=== PATIENT | female | born 1965 | race Caucasian/White ===

== ENCOUNTER 2018-05-03 12:55 | Emergency (ER) | payer BC ==
--- OUTSIDE RECORDS SUMMARY | 2018-05-03 13:09 | XMS REPORT ---
:1965 External Reference #:[id number] Author Organization [facility] Address [address] [address] Phone [phone] Care Team Providers Name Role Phone Chela Mccabe MD Primary Care Physician Unavailable Payers Type Date Identification Numbers Payment Provider Subscriber Health Maintenance Policy Number: [id number] [facility] [employer] (HMO) Plan PayID: [id number] [address] [place] [address] Problems Date Description Provider Status Onset: 10/10/2010 Benign essential hypertension Chela Mccabe MD Active Onset: 12/15/2009 Postoperative hypothyroidism Chela Mccabe MD Active Onset: 12/21/2014 Anxiety state Chela Mccabe MD Active Onset: 07/24/2017 Allergic rhinitis Chela Mccabe MD Active Family History Date Family Member(s) Problem(s) Comments Onset: (age 45 Father [place] Years) Mother None : (age 79 Paternal Grandfather due to Heart Years) Disease Paternal Grandmother Rheumatoid Arthritis : (age 68 Paternal Grandmother due to Years) Pneumonia Maternal Grandfather due to () - in Alzheimer's Disease his 80's : (age 82 Maternal Grandmother due to Cancer, Years) Stomach Social History Type Date Description Comments Education Hightest level completed, 1 year of college Marital Status Lives With Spouse Lives With Daughter Smoke-Free Home is smoke-free Pets 1 cat Pets 1 dog Occupation [employer] Cigarette Use Never Smoked Cigarettes ETOH Use Rarely consumes alcohol Smoking Patient has never smoked Allergies, Adverse Reactions, Alerts Date Description Reaction Status Severity Comments 12/15/2009 Percocet Dizzy, Vomiting active Medications Medication Date Status Form Strength Qnty SIG Indications Ordering Provider Fluticasone 01/23 Active Suspension 50mcg/Act 15.80 2 sprays H68.012 Eliot 0ml to each MD Chela nostril daily Levothyroxine 07/08 Active Tablets 50mcg 180ta 2 by mouth E89.0 Eliot , Sodium bs every day MD Chela Propranolol HCL 09/13 Active Tablets 10mg 60tab 1 -2 tabs F41.1 s by mouth MD Chela every 6 hours as needed for anxiety sx Enalapril Maleate 09/10 Active Tablets 10mg 90tab take 1 I10 Eliot s tablet MD Chela daily Hydrochlorothiazi 09/10 Active Tablets 12.5mg 90tab take 1 I10 Eliot s tablet MD Chela daily Amoxicillin/Clavu 03/17 Hx Tablets 875-125mg 14tab 1 by mouth J01.90 Solomon, lanate s twice a Alejo, - day x 7 DO Prednisone 03/17 Hx Tablets 20mg 10tab 2 tablets J01.90 Solomon, s by mouth Alejo, - for 5 days DO 04/23 Prednisone 02/03 Hx Tablets 20mg 6tabs 2x/day by H68.012 Digiovann mouth for a, - 3 days Annalise, 02/06 Cephalexin 11/23 Hx Tablets 500mg 40tab 1 by mouth J34.0 Eliot, s four times MD Chela - a day x 10 Benzonatate 09/24 Hx Capsules 200mg 30cap 1 by mouth R05 Digiovann s every 8 a, - hours as Annalise, 10/04 needed for cough, may cause drowsiness Levothyroxine 07/05 Hx Tablets 100mcg 60tab 1 by mouth E89.0 Eliot, Sodium s every day MD Chela - 07/08 Levothyroxine 12/21 Hx Tablets 88mcg 90tab 1 by mouth E89.0 Kulwinder Mccabe /Alivia s every day MD Chela - 07/05 Immunizations CPT Code Status Date Vaccine Lot # [id number] Given 07/28/2013 Tdap (Adacel) Ages 7 And Above Only [id number] Refused 02/27/2018 Flu Vaccine NOS [id number] Refused 01/19/2016 Afluria Or Fluvirin Flu Vac Intramuscular Vital Signs Date Vital Result Comment 04/23/2018 Body Temperature 98.5 F Weight 137.00 lb Heart Rate 76 /min BP Systolic 140 mmHg BP Diastolic 80 mmHg Respiratory Rate 18 /min Height 62 inches 5'2" 02/27/18 BMI (Body Mass Index) 25.1 kg/m2 03/17/2018 Body Temperature 98.4 F Weight 136.00 lb Heart Rate 76 /min BP Systolic 130 mmHg BP Diastolic 70 mmHg Respiratory Rate 18 /min Height 62 inches 5'2" 02/27/18 O2 % BldC Oximetry 93 % BMI (Body Mass Index) 24.9 kg/m2 02/27/2018 Weight 141.00 lb Heart Rate 72 /min BP Systolic 130 mmHg BP Diastolic 80 mmHg Respiratory Rate 18 /min Height 62 inches 5'2" 02/27/18 BMI (Body Mass Index) 25.8 kg/m2 02/03/2018 Weight 149.00 lb Heart Rate 80 /min BP Systolic 130 mmHg BP Diastolic 80 mmHg Respiratory Rate 16 /min Height 62 inches 5'2" 01/13/17 BMI (Body Mass Index) 27.2 kg/m2 01/23/2018 Body Temperature 99.2 F Weight 144.00 lb Heart Rate 84 /min BP Systolic 128 mmHg BP Diastolic 84 mmHg Respiratory Rate 16 /min Height 62 inches 5'2" 01/13/17 BMI (Body Mass Index) 26.3 kg/m2 07/24/2017 Weight 145.00 lb Heart Rate 80 /min BP Systolic 130 mmHg BP Diastolic 80 mmHg Respiratory Rate 18 /min Height 62 inches 5'2" 01/13/17 BMI (Body Mass Index) 26.5 kg/m2 01/21/2017 Weight 150.00 lb Heart Rate 80 /min BP Systolic 132 mmHg BP Diastolic 82 mmHg Respiratory Rate 18 /min Height 62 inches 5'2" 01/13/17 BMI (Body Mass Index) 27.4 kg/m2 01/13/2017 Weight 138.00 lb Heart Rate 68 /min BP Systolic 130 mmHg BP Diastolic 70 mmHg Respiratory Rate 18 /min Height 62 inches 5'2" 01/13/17 BMI (Body Mass Index) 25.2 kg/m2 12/30/2016 Body Temperature 100.1 F Weight 138.00 lb Heart Rate 80 /min BP Systolic 144 mmHg BP Diastolic 84 mmHg Respiratory Rate 18 /min Height 62 inches 5'2" 02/01/16 BMI (Body Mass Index) 25.2 kg/m2 11/23/2016 Body Temperature 98.7 F Weight 143.00 lb Heart Rate 76 /min BP Systolic 130 mmHg BP Diastolic 84 mmHg Respiratory Rate 16 /min Height 62 inches 5'2" 02/01/16 BMI (Body Mass Index) 26.2 kg/m2 09/24/2016 Body Temperature 99.5 F Weight 141.00 lb Heart Rate 96 /min BP Systolic 138 mmHg BP Diastolic 80 mmHg Respiratory Rate 18 /min Height 62 inches 5'2" 02/01/16 O2 % BldC Oximetry 98 % Ra BMI (Body Mass Index) 25.8 kg/m2 07/05/2016 Weight 139.00 lb Heart Rate 80 /min BP Systolic 130 mmHg BP Diastolic 80 mmHg Respiratory Rate 18 /min Height 62 inches 5'2" 02/01/16 BMI (Body Mass Index) 25.4 kg/m2 03/05/2016 Weight 140.00 lb Heart Rate 76 /min BP Systolic 110 mmHg BP Diastolic 70 mmHg Respiratory Rate 18 /min Height 62 inches 5'2" 02/01/16 BMI (Body Mass Index) 25.6 kg/m2 02/21/2016 Weight 140.00 lb Heart Rate 76 /min BP Systolic 130 mmHg BP Diastolic 88 mmHg Respiratory Rate 18 /min Height 62 inches 5'2" 02/01/16 BMI (Body Mass Index) 25.6 kg/m2 02/01/2016 Weight 142.00 lb Heart Rate 80 /min BP Systolic 120 mmHg BP Diastolic 60 mmHg Respiratory Rate 18 /min Height 62 inches 5'2" 02/01/16 BMI (Body Mass Index) 26.0 kg/m2 01/19/2016 Weight 140.00 lb Heart Rate 76 /min BP Systolic 112 mmHg BP Diastolic 70 mmHg Respiratory Rate 18 /min Height 62 inches 5'2" 08/22/15 BMI (Body Mass Index) 25.6 kg/m2 08/22/2015 Weight 138.00 lb Heart Rate 80 /min BP Systolic 124 mmHg BP Diastolic 80 mmHg Respiratory Rate 18 /min Height 62 inches 5'2" 08/22/15 BMI (Body Mass Index) 25.2 kg/m2 06/07/2015 Weight 137.00 lb Heart Rate 76 /min BP Systolic 122 mmHg BP Diastolic 80 mmHg Respiratory Rate 18 /min 12/21/2014 Weight 135.00 lb BP Systolic 112 mmHg BP Diastolic 76 mmHg Respiratory Rate 18 /min Height 62.25 inches 5'2.25" BMI (Body Mass Index) 24.5 kg/m2 08/01/2014 Weight 138.00 lb Heart Rate 78 /min BP Systolic 130 mmHg BP Diastolic 90 mmHg Respiratory Rate 18 /min Height 62.25 inches 5'2.25" 02/23/2014 Weight 134.00 lb Heart Rate 80 /min BP Systolic 126 mmHg BP Diastolic 70 mmHg Respiratory Rate 16 /min Height 62.25 inches 5'2.25" 12/09/2013 Weight 130.00 lb Heart Rate 68 /min BP Systolic 120 mmHg BP Diastolic 72 mmHg Respiratory Rate 16 /min Height 62.25 inches 5'2.25" Results Test Date Test Result H/L Range Note Laboratory test finding 04/23/2018 TSH <pending> Laboratory test finding 04/23/2018 Esr <pending> CRP (C-Reactive) <pending> Laboratory test finding 04/23/2018 Cortisol-RL <pending> Xray 04/23/2018 Chest Xray, 2 Views <pending> Rout Urine W/ Micro -RL 03/17/2018 Color YELLOW Appearance CLEAR Spec Grav Urine 1.012 (1.003-1.030) PH Urine 6.0 (5.0-7.5) Leuk Esterase NEGATIVE (Neg) Nitrite Urine NEGATIVE (Neg) Protein Urine NEGATIVE (Neg) Glucose Urine NEGATIVE (Neg) Ketone Urine NEGATIVE (Neg) Urobilinogen 0.2 mg/dL (0-1.0) Bilirubin Urine NEGATIVE (Neg) Blood/HGB Urine 1+ (Neg) Epithelial Cells NEGATIVE [HPF] (Neg) Hyaline Casts 0.3 [LPF] (0-5) Bacteria NEGATIVE [HPF] (Neg) Urine WBC 0.8 [HPF] (0-8) Urine RBC 1.0 [HPF] (0-3) 1 Laboratory test finding 02/27/2018 Urine Culture Microbiology res <SEE NOTE > 2 Rout Urine W/ Micro -RL 02/27/2018 Color YELLOW Appearance CLEAR Spec Grav Urine 1.014 (1.003-1.030) PH Urine 6.5 (5.0-7.5) Leuk Esterase NEGATIVE (Neg) Nitrite Urine NEGATIVE (Neg) Protein Urine NEGATIVE (Neg) Glucose Urine NEGATIVE (Neg) Ketone Urine NEGATIVE (Neg) Urobilinogen 0.2 mg/dL (0-1.0) Bilirubin Urine NEGATIVE (Neg) Blood/HGB Urine 2+ (Neg) Epithelial Cells NEGATIVE [HPF] (Neg) Hyaline Casts 1.6 [LPF] (0-5) Bacteria 1+ [HPF] (Neg) Urine WBC 3.4 [HPF] (0-8) Urine RBC 9.7 [HPF] High (0-3) 3 CBC With Auto Diff 02/12/2018 White Blood Count 7.4 K/uL 3.1-10.7 4 Red Blood Count 4.35 M/uL 3.90-5.40 4 Hemoglobin 13.6 gm/dL 11.6-15.8 4 Hematocrit 40.6 % 36.0-46.1 4 Mean Cell Volume 93.3 fl 80.9-99.0 4 Mean Corpuscular HGB 31.3 pg 25.9-32.7 4 Mean Corpuscular HGB Conc 33.5 g/dL 30.8-34.3 4 Platelet Count 351 K/uL 155-360 4 Red Cell Distri Width SD 42.0 fl 3-47 4 Red Cell Distri Width %CV 12.7 % 11.7-14.4 4 Mean Platelet Volume 9.3 fL 8.9-12.4 4 Neut% 53.7 % 40.4-72.8 4 Lymph % 33.9 % 20.0-42.0 4 Mckean % 10.6 % 4.3-13.2 4 Eo% 1.4 % 0.0-6.6 4 Bas% 0.4 % 0.0-1.1 4 Neut# 3.95 K/uL 1.8-7.0 4 Lymph # 2.49 K/uL 1.0-4.0 4 Mckean # 0.78 K/uL 0.3-0.9 4 Eos # 0.10 K/uL 0.0-0.5 4 Baso # 0.03 K/uL 0.0-0.1 4 CMP, Comprehensive Metabolic-F 02/12/2018 Glucose 93 mg/dL 74-106 4 BUN 19 mg/dL High 7-18 4 Creatinine 1.0 mg/dL 0.6-1.3 4 Glom Filtration Rate, Estimate >60 mL/min >60 4 If >60 mL/min >60 4, 5 BUN/Creat 19.0 ratio 4 Sodium 140 mmol/L 136-145 4 Potassium 3.3 mmol/L Low 3.5-5.1 4 Chloride 104 mmol/L 98-107 4 Carbon Dioxide 28 mmol/L 21-32 4 Anion Gap 8 mEq/L 8-16 4 Calcium 8.7 mg/dL 8.5-10.1 4 Total Protein 7.8 g/dL 6.4-8.2 4 Albumin 3.9 g/dL 3.4-5.0 4 Globulin 3.9 g/dL 1.9-4.3 4 Alb/Glob 1.0 ratio 4 Bilirubin,Total 0.3 mg/dL 0.2-1.0 4 Sgot/Ast 12 U/L Low 15-37 4, 6 SGPT/Alt 24 U/L 12-78 4 Alkaline Phosphatase 70 U/L 45-117 4 Laboratory test finding 02/12/2018 Free T3 2.59 pg/mL 2.18-3.98 4 Free T4 1.22 ng/dL 0.76-1.46 4 Triiodothyronine,Total 90 ng/dL 71-180 4, 7 Laboratory test 02/12/2018 Thyroid Stim 1.69 uIU/mL 0.30-4.20 4 finding Hormone Laboratory test 07/16/2017 Thyroid Stim 1.24 uIU/mL 0.30-4.20 8 finding Hormone Laboratory test 01/21/2017 Pap Smear Thin SEE NOTE 9 finding Prep Laboratory test 01/21/2017 HPV Laboratory Allia 10 finding <SEE NOTE> Laboratory test 01/13/2017 TSH 0.87 uIU/mL 0.35-4.94 11 finding Comprehensive 01/13/2017 Sodium 140 mmol/L 135-146 11, 12 Metabolic (CMP) Potassium 4.1 mmol/L 3.5-5.2 11 Chloride# 103 mmol/L 97-110 11, 13 Carbon Dioxide 25 mmol/L 24-34 11 Glucose 92 mg/dL 70-105 11 BUN 16 mg/dL 6-26 11 Creatinine 0.8 mg/dL 0.5-1.4 11 Calcium 9.6 mg/dL 8.5-10.2 11 Total Protein 7.1 g/dL 6.0-8.0 11 Albumin 4.5 g/dL 3.6-4.9 11 Globulin 2.6 g/dL 2.0-3.5 11 A/G Ratio 1.7 Ratio 1.0-2.2 11 Total Bilirubin 0.4 mg/dL 0.1-1.3 11 Alkaline Phosphatase 79 U/L 24-140 11 Alt 17 U/L 3-42 11 Ast 14 U/L 8-42 11 Nella Egfr >60 >60 11, 14 Non Nella Egfr >60 >60 11, 15 Anion Gap 16 mmol/L 7-16 11, 16 CBC With Auto Diff 01/13/2017 WBC 5.6 K/uL 4.1-11.0 11 RBC 4.25 M/uL 4.00-5.40 11 Hemoglobin 12.8 gm/dL 12.0-16.0 11 Hematocrit 38.0 % 36.0-47.0 11 MCV 89.5 fL 80.0-97.0 11 MCH 30.2 pg 27.0-32.0 11 MCHC 33.7 g/dL 32.0-36.0 11 RDW 12.8 % 11.5-14.5 11 PLT Count 339 K/ul 140-400 11 Neutrophil 54.2 % 35.0-75.0 11 Lymphocyte 32.5 % 16.0-52.0 11 Monocyte 10.4 % High 2.0-10.0 11 Eosinophil 2.2 % 0.0-5.0 11 Basophil 0.7 % 0.0-4.0 11 Abs Neutrophils 3.0 K/uL 2.1-8.0 11 Abs Lymphocytes 1.8 K/uL 0.8-5.5 11 Abs Monocytes 0.6 K/uL 0.1-1.0 11 Abs Eosinophils 0.1 K/uL 0.0-0.5 11 Abs Basophils 0.0 K/uL 0.0-0.3 11 Laboratory test 01/13/2017 Hepatitis C Virus NONREACTIVE Nonreactive 11 finding Antibody Laboratory test 08/19/2016 Thyroid Stim Hormone 0.64 uIU/mL 0.30-4.20 17 finding TSH 06/28/2016 Thyroid Stim Hormone 6.14 uIU/mL High 0.30-4.20 Is Patient Fasting? Fasting Comprehensive Metabolic Panel 06/28/2016 Glucose 77 mg/dL 74-106 BUN 17 mg/dL 7-18 Creatinine 0.9 mg/dL 0.6-1.3 Glom Filtration Rate, Estimate >60 mL/min >60 If >60 mL/min >60 18 BUN/Creat 18.8 ratio Sodium 139 mmol/L 136-145 Potassium 3.4 mmol/L Low 3.5-5.1 Chloride 103 mmol/L 98-107 Carbon Dioxide 28 mmol/L 21-32 Anion Gap 8 mEq/L 8-16 Calcium 8.6 mg/dL 8.5-10.1 Total Protein 7.6 g/dL 6.4-8.2 Albumin 3.7 g/dL 3.4-5.0 Globulin 3.9 g/dL 1.9-4.3 Alb/Glob 0.9 ratio Bilirubin,Total 0.3 mg/dL 0.2-1.0 Sgot/Ast 13 U/L Low 15-37 19 SGPT/Alt 27 U/L 12-78 Alkaline Phosphatase 75 U/L 45-117 Is Patient Fasting? Fasting CBC With Auto Diff 06/28/2016 White Blood Count 7.3 K/uL 3.1-10.7 20 Red Blood Count 4.25 M/uL 3.90-5.40 20 Hemoglobin 13.2 gm/dL 11.6-15.8 20 Hematocrit 39.3 % 36.0-46.1 20 Mean Cell Volume 92.5 fl 80.9-99.0 20 Mean Corpuscular HGB 31.1 pg 25.9-32.7 20 Mean Corpuscular HGB Conc 33.6 g/dL 30.8-34.3 20 Platelet Count 319 K/uL 155-360 20 Red Cell Distri Width SD 40.7 fl 3-47 20 Red Cell Distri Width %CV 12.4 % 11.7-14.4 20 Mean Platelet Volume 9.3 fL 8.9-12.4 20 Neut% 50.4 % 40.4-72.8 20 Lymph % 37.6 % 17.0-46.1 20 Mckean % 10.2 % 4.3-13.2 20 Eo% 1.5 % 0.0-6.6 20 Bas% 0.3 % 0.0-1.1 20 Neut# 3.68 K/uL 1.8-7.0 20 Lymph # 2.74 K/uL 1.8-7.0 20 Mckean # 0.74 K/uL 0.3-0.9 20 Eos # 0.11 K/uL 0.0-0.5 20 Baso # 0.02 K/uL 0.0-0.1 20 Laboratory test 02/21/2016 Surgical Path [facility] SEE NOTE 21 finding Laboratory test 01/19/2016 Pap Smear Thin SEE NOTE 22 finding Prep Laboratory test 01/19/2016 HPV Laboratory Allia 23 finding <SEE NOTE> Laboratory test 01/17/2016 Thyroid Stim 0.98 uIU/mL 0.30-4.20 finding Hormone Laboratory test 08/22/2015 Troponin-I < 0.015 ng/mL 24 finding CK 47 U/L 26-192 25 CBC With Auto Diff 08/22/2015 WBC 7.2 K/uL 4.1-11.0 26 RBC 4.38 M/uL 4.00-5.40 26 Hemoglobin 13.5 gm/dL 12.0-16.0 26 Hematocrit 40.0 % 36.0-47.0 26 MCV 91.2 fL 80.0-97.0 26 MCH 30.9 pg 27.0-32.0 26 MCHC 33.8 g/dL 32.0-36.0 26 RDW 12.3 % 11.5-14.5 26 PLT Count 358 K/ul 140-400 26 Neutrophil 58.6 % 35.0-75.0 26 Lymphocyte 26.8 % 16.0-52.0 26 Monocyte 11.7 % High 2.0-10.0 26 Eosinophil 2.6 % 0.0-5.0 26 Basophil 0.3 % 0.0-4.0 26 Abs Neutrophils 4.2 K/uL 2.1-8.0 26 Abs Lymphocytes 1.9 K/uL 0.8-5.5 26 Abmon 0.8 K/uL 0.1-1.0 26 Abs Eosinophils 0.2 K/uL 0.0-0.5 26 Abs Basophils 0.0 K/uL 0.0-0.3 26 Comprehensive Metabolic (CMP) 08/22/2015 Sodium 136 mmol/L 134-142 26 Potassium 4.0 mmol/L 3.5-5.2 26 Chloride 99 mmol/L 97-109 26 Carbon Dioxide 30 mmol/L 24-34 26 Glucose 78 mg/dL 70-105 26 BUN 16 mg/dL 6-26 26 Creatinine 0.7 mg/dL 0.5-1.4 26 Calcium 9.4 mg/dL 8.5-10.2 26 Total Protein 7.4 g/dL 6.0-8.0 26 Albumin 4.3 g/dL 3.6-4.9 26 Globulin 3.1 g/dL 2.0-3.5 26 A/G Ratio 1.4 Ratio 1.0-2.2 26 Total Bilirubin 0.5 mg/dL 0.1-1.3 26 Alkaline Phosphatase 82 U/L 24-140 26 Alt 23 U/L 3-42 26 Ast 19 U/L 8-42 26 Anion Gap 11 mmol/L 6-14 26 Nella Egfr >60 >60 26, 27 Non Nella Egfr >60 >60 26, 28 Basic Metabolic Panel 06/01/2015 Glucose 91 mg/dL 74-106 BUN 15 mg/dL 7-18 Creatinine 0.9 mg/dL 0.6-1.3 Glom Filtration Rate, Estimate >60 mL/min >60 If >60 mL/min >60 29 BUN/Creat 16.6 ratio Sodium 137 mmol/L 136-145 Potassium 3.7 mmol/L 3.5-5.1 Chloride 104 mmol/L 98-107 Carbon Dioxide 27 mmol/L 21-32 Anion Gap 6 mEq/L Low 8-16 Calcium 8.3 mg/dL Low 8.5-10.1 Laboratory test finding 06/01/2015 Thyroid Stim Hormone 1.39 uIU/mL 0.36- 3.74 CBC W/Automated Diff 06/01/2015 White Blood Count 5.9 K/uL 3.1-10.7 Red Blood Count 4.26 M/uL 3.90-5.40 Hemoglobin 13.1 gm/dL 11.6-15.8 Hematocrit 39.7 % 36.0-46.1 Mean Cell Volume 93.2 fl 80.9-99.0 Mean Corpuscular HGB 30.8 pg 25.9-32.7 Mean Corpuscular HGB Conc 33.0 g/dL 30.8-34.3 Platelet Count 321 K/uL 155-360 Red Cell Distri Width SD 41.1 fl 3-47 Red Cell Distri Width %CV 12.5 % 11.7-14.4 Mean Platelet Volume 9.8 fL 8.9-12.4 Neut% 64.2 % 40.4-72.8 Lymph % 21.8 % 17.0-46.1 Mckean % 11.0 % 4.3-13.2 Eo% 2.5 % 0.0-6.6 Bas% 0.5 % 0.0-1.1 Neut# 3.81 K/uL 1.0-7.0 Lymph # 1.29 K/uL Low 1.8-7.0 Mckean # 0.65 K/uL 0.3-0.9 Eos # 0.15 K/uL 0.0-0.5 Baso # 0.03 K/uL 0.0-0.1 Laboratory test 12/21/2014 Pap Smear Thin SEE NOTE - nl 30 finding Prep Laboratory test 12/21/2014 HPV Laboratory Allia 31 finding <SEE NOTE> Laboratory test 12/06/2014 Thyroid Stim 1.32 uIU/mL 0.36-3.74 finding Hormone Laboratory test 06/13/2014 Alb/Glob 0.9 ratio finding Albumin 3.7 g/dL 3.4-5.0 Alkaline Phosphatase 80 U/L 45-117 Anion Gap 11 mEq/L 8-16 BUN 16 mg/dL 7-18 BUN/Creat 16.0 ratio Bas% 0.3 % 0.0-1.1 Baso # 0.02 K/uL 0.0-0.1 Bilirubin,Total 0.3 mg/dL 0.2-1.0 Calcium 8.8 mg/dL 8.5-10.1 Carbon Dioxide 25 mmol/L 21-32 Chloride 107 mmol/L 98-107 Creatinine 1.0 mg/dL 0.6-1.3 Eo% 2.9 % 0.0-6.6 Eos # 0.20 K/uL 0.0-0.5 Free T4 1.10 ng/dL 0.76-1.46 Globulin 3.9 g/dL 1.9-4.3 Glom Filtration Rate, Estimate >60 mL/min >60 Glucose 86 mg/dL 74-106 Hematocrit 38.6 % 36.0-46.1 Hemoglobin 13.2 gm/dL 11.6-15.8 If >60 mL/min >60 32 Lymph # 1.93 K/uL 0.8-3.4 Lymph % 27.8 % 17.0-46.1 Mean Cell Volume 94.1 fl 80.9-99.0 Mean Corpuscular HGB 32.2 pg 25.9-32.7 Mean Corpuscular HGB Conc 34.2 g/dL 30.8-34.3 Mean Platelet Volume 9.8 fL 8.9-12.4 Mckean # 0.72 K/uL 0.3-0.9 Mckean % 10.4 % 4.3-13.2 Neut# 4.07 K/uL 1.0-7.0 Neut% 58.6 % 40.4-72.8 Platelet Count 291 K/uL 155-360 Potassium 3.7 mmol/L 3.5-5.1 Red Blood Count 4.10 M/uL 3.90-5.40 Red Cell Distri Width %CV 12.2 % 11.7-14.4 Red Cell Distri Width SD 41.1 fl 3-47 SGPT/Alt 21 U/L 12-78 Sgot/Ast 12 U/L Low 15-37 Sodium 139 mmol/L 136-145 Thyroid Stim Hormone 1.64 uIU/mL 0.36-3.74 Total Protein 7.6 g/dL 6.4-8.2 Triiodothyronine,Total 110 ng/dL 71-180 33 White Blood Count 6.9 K/uL 3.1-10.7 LDL Cholesterol Profile 06/13/2014 Cholesterol 188 mg/dL 34 HDL Cholesterol 36 mg/dL 35 LDL-Cholesterol 122 mg/dL 36 Triglycerides 149 mg/dL 37 Laboratory test finding 11/15/2013 Thyroid Stim Hormone 0.69 uIU/mL 0.49- 4.67 LDL Cholesterol Profile 04/23/2013 Cholesterol 168 mg/dL 120-200 HDL Cholesterol 36 mg/dL 29-83 LDL-Cholesterol 107 mg/dL 62-185 Triglycerides 126 mg/dL 16-231 Laboratory test finding 04/23/2013 Alb/Glob 1.0 ratio Albumin 3.8 g/dL 3.5-5.0 Alkaline Phosphatase 84 U/L 50-136 Anion Gap 11 mEq/L 8-16 BUN 15 mg/dL 5-23 BUN/Creat 18.7 ratio Bas% 0.3 % 0.0-1.1 Baso # 0.02 K/uL 0.0-0.1 Bilirubin,Total 0.6 mg/dL 0.2-1.2 Calcium 8.7 mg/dL 8.5-10.1 Carbon Dioxide 26 mEq/L 18-29 Chloride 106 mmol/L 98-107 Creatinine 0.8 mg/dL 0.5-1.4 Eo% 2.1 % 0.0-6.6 Eos # 0.13 K/uL 0.0-0.5 Free T4 1.12 ng/dL 0.71-1.85 Globulin 4.0 g/dL 1.9-4.3 Glom Filtration Rate, Estimate >60 mL/min >60 Glucose 92 mg/dL 76-115 Hematocrit 39.5 % 36.0-46.1 Hemoglobin 13.7 gm/dL 11.6-15.8 If >60 mL/min >60 38 Lymph # 1.29 K/uL 0.8-3.4 Lymph % 21.2 % 17.0-46.1 Mean Cell Volume 93.4 fl 80.9-99.0 Mean Corpuscular HGB 32.4 pg 25.9-32.7 Mean Corpuscular HGB Conc 34.7 g/dL High 30.8-34.3 Mean Platelet Volume 9.3 fL 8.9-12.4 Mckean # 0.66 K/uL 0.3-0.9 Mckean % 10.9 % 4.3-13.2 Neut# 3.98 K/uL 1.0-7.0 Neut% 65.5 % 40.4-72.8 Platelet Count 269 K/uL 155-360 Potassium 3.8 mmol/L 3.5-5.1 Red Blood Count 4.23 M/uL 3.90-5.40 Red Cell Distri Width %CV 12.0 % 11.7-14.4 Red Cell Distri Width SD 39.8 fl 3-47 SGPT/Alt 18 U/L Low 30-65 Sgot/Ast 9 U/L Low 16-40 Sodium 139 mmol/L 136-145 Thyroid Stim Hormone 1.30 uIU/mL 0.49-4.67 Total Protein 7.8 g/dL 6.3-8.0 Triiodothyronine,Total 100 ng/dL 71-180 39 White Blood Count 6.1 K/uL 3.1-10.7 1 Unless otherwise specified, testing performed by [employer] [facility] [address] [address] 2 Microbiology results SOURCE Clean Catch Midstream FINAL RESULT No growth 3 Unless otherwise specified, testing performed by [address] [address] 4 E89.0 I10 5 Note: Persistent reduction for 3 months or more in an eGFR <60 mL/min/1.73 m2 defines CKD. Patients with eGFR values >/=60 mL/min/1.73 m2 may also have CKD if evidence of persistent proteinuria is present. The original MDRD equation for estimated GFR is not valid for patients less than 18 years of age. Additional information may be found at www.kdoqi.org. 6 Values below the stated reference ranges of AST and ALT can be seen in normal populations. Clinical correlation is suggested. 7 Performed at: RN - [facility] [place] [id number] Guest Relations Manager: Jennifer Pugh MD, Phone: [phone] I16.0 9 [facility]. [address] [place] [id number] CYTOLOGY REPORT Source of Specimen(s): Thin Prep Cervical / Endocervical Pap Smear - One Vial Date of Last Menstrual Period: 1 wk ago Other Clinical Conditions: Last Pap Smear: 1 yr ago atypical glandular cells HPV ASSAY REQUESTED Specimen Adequacy SATISFACTORY FOR EVALUATION PRESENCE OF ENDOCERVICAL/TRANSFORMATION ZONE COMPONENT General Categorization NEGATIVE FOR INTRAEPITHELIAL LESION OR MALIGNANCY Interpretation NEGATIVE FOR INTRAEPITHELIAL LESION OR MALIGNANCY Reactive cellular changes. Comment HPV testing will be performed and a separate report will be issued. Reported: 01/23/2017 12:13 Electronically Signed Out By Srinivasa Lang MD [facility] [address] [place] [id number] Senior Gl Accountant: Debi Mack CT(ASCP) ICD9 Code: Z00.00 Unless otherwise specified, testing performed by Laboratory [facility] [email or web address] [address] [address] [address] [address] Amplified Molecular High Risk HPV Test Patient Name:KHADIJAH MCCLENDON Patient :1965 Ordering Physician:CHELA MCCABE MD Accession Number [id number] Specimen(s) Received A: High Risk HPV Thin Prep Cervical / Endocervical Pap Smear - One Vial Other Case Numbers: [id number] Diagnosis RISK GROUPS RESULTS High Risk NEGATIVE Tested for HPV Types (16, 18, 31, 33, 35, 39, 45, 51, 52, 56, 58, 59, 66, 68) Reported: 01/24/2017 09:43 Electronically Signed Out By Khadijah Suárez wallace Reagan 11 6 mos 12 Updated reference range on new analyzer 13 Updated reference range on new analyzer 14 Concerning GFR Guidelines for Americans: Normal function or mild renal disease, if clinically at risk: >/=60 mL/min Moderately decreased: 30-59 Severely decreased: 15-29 Renal failure: <15 15 Concerning GFR Guidelines: Normal function or mild renal disease, if clinically at risk: >/=60 mL/min Moderately decreased: 30-59 Severely decreased: 15-29 Renal failure: <15 Glomerular Filtration Rate (GFR) is estimated based on the MDRD equation, which assumes a steady state for creatinine as recommended by the National Kidney Disease Education Program in conjunction with the National Institutes of Health and the National Kidney Foundation. Clinical conditions in which it may be necessary to measure GFR by using clearance methods include extremes of age and body size, severe malnutrition or obesity, diseases of skeletal muscle, paraplegia or quadriplegia, vegetarian diet, rapidly changing kidney function, and calculation of the dose of potentially toxic drugs that are excreted by the kidneys. 16 Updated reference range on new analyzer 17 E89.0 18 Note: Persistent reduction for 3 months or more in an eGFR <60 mL/min/1.73 m2 defines CKD. Patients with eGFR values >/=60 mL/min/1.73 m2 may also have CKD if evidence of persistent proteinuria is present. The original MDRD equation for estimated GFR is not valid for patients less than 18 years of age. Additional information may be found at www.kdoqi.org. 19 Values below the stated reference ranges of AST and ALT can be seen in normal populations. Clinical correlation is suggested. 20 I10 E89.0 [address] [place] [id number] Surgical Pathology Report Specimen(s) Received A: Endocervical curettings B: Endometrial biopsy C: Cervix 3:00 erosion Clinical Diagnosis and History Pap shows atypical glandular cells Gross Description Specimen A received in formalin labeled "endocervical curettings" is a 0.5 cc aggregate of mucus and clotted blood which is submitted in toto for microscopic examination. (1 block) Specimen B received in formalin labeled "endometrial biopsy" is 1.5 cc of irregular lopez-brown fragments of soft tissue, clotted blood and mucus, which is submitted in toto for microscopic examination. (1 block) Specimen C received in formalin labeled "3 o'clock" is a 0.6 x 0.2 x 0.1 cm soft lopez partially fragmented irregular tissue. The specimen is received along with a small amount of mucoid material. The specimen is filtered and submitted in toto for microscopic examination. (1 block) jgl rff/jbs Diagnosis A) DESIGNATED ECC: No significant pathologic changes. No significant cytologic atypia is seen on multiple levels examined. B) DESIGNATED ENDOMETRIAL BIOPSY: Secretory endometrium, day 17-18, superimposed on focal, mild, disordered proliferative endometrium. Multiple levels examined. C) DESIGNATED CERVIX 3 O'CLOCK EROSION: Squamous metaplasia. Mild acute and chronic cervicitis with reactive-appearing endocervical atypia. Multiple levels examined. Comments [id number] and [id number] are reviewed. Recommend follow up as clinically indicated. Technical component processed at [facility], Histopathology, [address], [place], [address]. Diagnosis and reporting performed at [facility], [address] [place] [id number]. Reported: 02/26/2016 13:26 Electronically Signed Out By Jack Marquez M.D. paw ICD9 Codes R87.610 Unless otherwise specified, testing performed by [facility], [address] [address] [address] [facility]. [address] [place] [address] GYNECOLOGIC CYTOLOGY REPORT Accession Number: [id number] Source of Specimen(s): A: Thin Prep Cervical / Endocervical Pap Smear - One Vial Clinical Diagnosis and History: Date of Last Menstrual Period: 1 wk ago Other Clinical Conditions: Last Pap Smear: 2014 normal HPV Pos HPV ASSAY REQUESTED Specimen Adequacy Satisfactory for evaluation Presence of endocervical/transformation zone component General Categorization Epithelial cell abnormality Interpretation ATYPICAL GLANDULAR CELLS, NOS Recommendations HPV testing will be performed and a separate report will be issued. Recommend colposcopy with endocervical sampling and endometrial sampling (ASCCP 2012 consensus guidelines for the initial work-up of women with atypical glandular cells/AGC), or further follow-up as clinically indicated. Reported: 01/24/2016 Electronically Signed Out By Alek Skinner M.D. Senior Gl Accountant: Debi RUVALCABA(ASC) [facility] Unless otherwise specified, testing performed by [email or web address] [address] [address] [address] [facility] [address] [address] Amplified Molecular High Risk HPV Test Accession Number [id number] Specimen(s) Received A: High Risk HPV Thin Prep Cervical / Endocervical Pap Smear - One Vial Other Case Numbers: [id number] Diagnosis RISK GROUPS RESULTS High Risk NEGATIVE Tested for HPV Types (16, 18, 31, 33, 35, 39, 45, 51, 52, 56, 58, 59, 66, 68) Reported: 01/24/2016 15:07 Electronically Signed Out By Surekha Tang ckl 24 0.0 - 0.045 ng/mL: Normal 0.046 - 0.5 ng/mL: Suggestive 0.6 - 1.5 ng/mL: Consistent 25 STAT 26 labs today. stat troponin and CK. 27 Concerning GFR Guidelines for Americans: Normal function or mild renal disease, if clinically at risk: >/=60 mL/min Moderately decreased: 30-59 Severely decreased: 15-29 Renal failure: <15 28 Concerning GFR Guidelines: Normal function or mild renal disease, if clinically at risk: >/=60 mL/min Moderately decreased: 30-59 Severely decreased: 15-29 Renal failure: <15 Glomerular Filtration Rate (GFR) is estimated based on the MDRD equation, which assumes a steady state for creatinine as recommended by the National Kidney Disease Education Program in conjunction with the National Institutes of Health and the National Kidney Foundation. Clinical conditions in which it may be necessary to measure GFR by using clearance methods include extremes of age and body size, severe malnutrition or obesity, diseases of skeletal muscle, paraplegia or quadriplegia, vegetarian diet, rapidly changing kidney function, and calculation of the dose of potentially toxic drugs that are excreted by the kidneys. 29 Note: Persistent reduction for 3 months or more in an eGFR <60 mL/min/1.73 m2 defines CKD. Patients with eGFR values >/=60 mL/min/1.73 m2 may also have CKD if evidence of persistent proteinuria is present. The original MDRD equation for estimated GFR is not valid for patients less than 18 years of age. Additional information may be found at www.kdoqi.org. 30 Submittable [employer] [facility] [employer] [facility]. [address] [place] [address] GYNECOLOGIC CYTOLOGY REPORT Accession Number: [id number] Source of Specimen(s): A: Thin Prep Cervical / Endocervical Pap Smear - One Vial Clinical Diagnosis and History: Date of Last Menstrual Period: 12/12/14 Other Clinical Conditions: Last Pap Smear: 3 yrs ago normal HPV ASSAY REQUESTED Specimen Adequacy Satisfactory for evaluation Presence of endocervical/transformation zone component General Categorization Negative for intraepithelial lesion or malignancy Interpretation NEGATIVE FOR INTRAEPITHELIAL LESION OR MALIGNANCY Acute inflammatory cells Recommendations HPV testing will be performed and a separate report will be issued. Reported: 12/23/2014 Electronically Signed Out By Debi RUVALCABA(ASCP) [facility] dss Unless otherwise specified, testing performed by [employer] [facility] [address] [address] 31 [facility] [employer] [address] [address] Amplified Molecular High Risk HPV Test Accession Number [id number] Specimen(s) Received A: High Risk HPV Thin Prep Cervical / Endocervical Pap Smear - One Vial Other Case Numbers: [id number] Diagnosis RISK GROUPS HPV TYPES RESULTS High Risk (16, 18, 31, 33, 35, 39, 45, 51, 52, 56, 58, 59, 66, 68) POSITIVE Comments The presence of High Risk HPV types is usually associated with a high/intermediate risk for development or progression to invasive cancer of the cervix. Reported: 12/23/2014 17:41 Electronically Signed Out By Alyse Hernandez [place] lic 32 Note: Persistent reduction for 3 months or more in an eGFR <60 mL/min/1.73 m2 defines CKD. Patients with eGFR values >/=60 mL/min/1.73 m2 may also have CKD if evidence of persistent proteinuria is present. The original MDRD equation for estimated GFR is not valid for patients less than 18 years of age. Additional information may be found at www.kdoqi.org. 33 Performed at: RN - [facility] [address] [id number] Guest Relations Manager: Jennifer Pugh MD, Phone: [phone] 34 Reference Guidelines*: Desirable: ........... < 200 mg/dL Borderline High: ..... 200-239 mg/dL High: ................ >=240 mg/dL * The National Cholesterol Education Program (NCEP) 35 Reference Guidelines*: Low HDL: ..... < 40 mg/dL Normal: ..... 40-60 mg/dL Desirable: ... > 60 mg/dL *The National Cholesterol Education Program(NCEP) 36 Reference Guidelines*: Optimal:........... <100 mg/dL Near Optimal....... 100-129 mg/dL Borderline High.... 130-159 mg/dL High............... 160-189 mg/dL Very High.......... >=190 mg/dL * Source: National Cholesterol Education Program ( NCEP) 37 Reference Guidelines*: Normal: ............. < 150 mg/dL Borderline High: .... 150-199 mg/dL High: ............... 200-499 mg/dL Very High: .......... > 500 mg/dL * Source: National Cholesterol Education Program (NCEP) 38 Note: Persistent reduction for 3 months or more in an eGFR <60 mL/min/1.73 m2 defines CKD. Patients with eGFR values >/=60 mL/min/1.73 m2 may also have CKD if evidence of persistent proteinuria is present. The original MDRD equation for estimated GFR is not valid for patients less than 18 years of age. Additional information may be found at www.kdoqi.org. 39 Performed at: RN - [facility] [address] [id number] Guest Relations Manager: Jennifer Pugh MD, Phone: [phone] Procedures Date CPT Code Description Status Comment 03/17/2018 30638 Measure Blood Oxygen Level Single Completed Determination 02/27/2018 36024 Brief Emotional/Behav Assessment Completed W/ Scoring Doc Per Standard Inst 02/26/2018 Mammogram Completed 07/18/2016 02725 Ultrasound Breast Unilateral Real Completed Time W/ Image Doc [facility] 07/18/2016 57472 Ultrasound Breast Unilateral Real Completed Time W/ Image Doc [facility] 02/21/2016 30421 Endometrial Sampling(BX)In Completed Conjunction W/Coploscopy (Add-On) 02/21/2016 61444 Colposcopy W/Biopsy Completed Cervix/Endocervical Curettage 02/06/2016 14709 Echography Pelvic Complete Completed 02/06/2016 61817 Echography Transvaginal Completed 02/01/2016 83799 Ultrasound Breast Limited Completed 08/22/2015 77137 X-Ray Chest Two Views Frontal & Completed Lateral 08/22/2015 08310 Electrocardiogram Complete Completed 07/13/2015 65231 Ultrasound Breast Limited Completed 07/13/2015 87220 Ultrasound Breast Unilateral Real Completed Time W/ Image Doc [facility] 07/13/2015 Mammogram Completed 01/19/2015 37902 Ultrasound Breast Unilateral Real Completed Time W/ Image Doc [facility] 01/19/2015 73627 Ultrasound Breast Unilateral Real Completed Time W/ Image Doc [facility] 01/19/2015 Mammogram Completed 01/11/2015 Mammogram Completed 06/13/2014 Colonoscopy Completed repeat in 10 years Document: 10/17/15 - Gastro/Colon Op Report Encounters Type Date Location Provider CPT E/M Dx Office Visit 03/17/2018 8:15a [facility] [address] J01.90 Office Visit 02/27/2018 3:30p [facility] [address] Z01.419 Z13.89 I10 E89.0 F41.1 J30.9 R31.9 Z68.25 Office Visit 02/03/2018 1:45p [facility] [place] [address] H68.012 Office Visit 01/23/2018 4:15p [facility] [place] [address] H68.012 Z68.26 Office Visit 07/24/2017 4:15p [facility] [place] [address] I10 E89.0 F41.1 J30.9 M25.512 Office Visit 01/21/2017 2:00p [facility] [place] [address] Z00.00 I10 E89.0 F41.1 Office Visit 01/13/2017 10:15a [facility] [place] [address] Z11.59 H81.12 Office Visit 12/30/2016 1:45p [facility] [place] [address] H81.12 Office Visit 11/23/2016 10:15a [facility] [place] [address] J34.0 Office Visit 09/24/2016 1:45p [facility] [place] [address] R05 Office Visit 07/05/2016 3:30p [facility] [place] [address] I10 F41.1 E89.0 Office Visit 03/05/2016 3:30p [facility] [address] R87.619 Office Visit 02/01/2016 2:30p [facility] [place] [address] R87.619 N92.1 N60.01 Office Visit 01/19/2016 2:30p [facility] [place] [address] Z01.419 I10 E89.0 F41.9 R87.810 Office Visit 08/22/2015 3:00p [facility] [address] R07.9 Office Visit 06/07/2015 8:30a [facility] [place] [address] 401.1 244.0 300.00 795.05 Office Visit 12/21/2014 10:00a [facility] [place] [address] V72.31 401.1 244.0 300.00 V76.51 V76.11 Plan of Care Future Appointment(s):08/31/2018 3:30 pm - Chela Mccabe MD at [facility]03/05/2019 2:00 pm - Chela Mccabe MD at [facility]04/23/2018 - Chela Mccabe MDR22.1 Localized swelling, mass and lump, neckComments:will check chest xray to look for signs of pneumonia or lymphoma. consider CT neck.E89.0 Postprocedural hypothyroidismComments:check tsh qpxhwR56.83 Other fatigueComments:cause unclear - check labs qtqhyH10.9 Allergic rhinitis, unspecifiedComments:please restart flonase and add suggest that she try [id number] nonsedating antihistamine medications such as claritin (generic is loratadine), zyrtec ( Generic is certirizine) or claude (genericif fexofenadine). please call if you would like a referral to see an cut in worker.Z68.25 Body mass index (BMI) 25.0- 25.9, adult
--- NOTE | 2018-05-03 14:46 | UC ---
Dizzy HPI HPI Summary: The patient is a 53-year-old female that presents here with a primary complaint of being lightheaded and dizzy. Her symptoms started about 3 days ago. She has had allergy type symptoms sent mid January. She denies any headache. She states that she does feel foggy. She has low energy. She is in the process of an evaluation of lymphadenopathy. She has also had concerns about her thyroid. Has been a recent increase in her Synthroid dosage. She denies any fever or chills. She has had hot flashes. I'm she feels cold and clammy. He denies any chest pain or shortness of breath. she had lab work drawn about 5 days ago CBC/chemistries normal...ESR 38 - History Of Current Complaint Chief Complaint: UCGeneralIllness Stated Complaint: LIGHTHEADED, DIZZY Time Seen by Provider: 05/03/18 14:44 Hx Obtained From: Patient Hx Last Menstrual Period: 02/08/14 Onset/Duration: Gradual Onset, Lasting Days Timing: Constant Severity Initially: Mild Severity Currently: Mild Pain Intensity: 0 Pain Scale Used: 0-10 Numeric Character: Lightheaded, Dizzy Aggravating Factor(s): Nothing Alleviating Factor(s): Nothing Associated Signs And Symptoms: Positive: Tinnitus, Change In Medication. Negative: Nausea, Vomiting, Diaphoresis, Chest Pain, SOB, Palpitations, Unsteady Gait, Visual Changes, Decreased Oral Intake, Change In Diet, OTC Medications - Allergies/Home Medications Allergies/Adverse Reactions: Allergies Allergy/AdvReac Type Severity Reaction Status Date / Time MS Acetaminophen Allergy Dizziness Verified 02/19/14 20:50 [From Percocet] MS Oxycodone [From Percocet] Allergy Dizziness Verified 02/19/14 20:50 Home Medications: Home Medications Propranolol TAB* [Inderal TAB*] 10 mg PO DAILY 05/03/18 [History Confirmed 05/03] PMH/Surg Hx/FS Hx/Imm Hx Previously Healthy: Yes Cardiovascular History: Hypertension Psychological History: Anxiety - Surgical History Surgical History: Yes Surgery Procedure, Year, and Place: thyroidectomy , right knee - Family History Known Family History: Positive: Hypertension - Social History Alcohol Use: None Substance Use Type: None Smoking Status (MU): Never Smoked Tobacco Review of Systems Constitutional: Fatigue Skin: Negative Eyes: Negative ENT: Nasal Discharge, Sinus Congestion Respiratory: Negative Cardiovascular: Negative Gastrointestinal: Negative Genitourinary: Negative Motor: Negative Neurovascular: Negative Musculoskeletal: Negative Neurological: Negative Psychological: Anxious Is Patient Immunocompromised?: No All Other Systems Reviewed And Are Negative: Yes Physical Exam Triage Information Reviewed: Yes Appearance: Well-Appearing, No Pain Distress, Well-Nourished Vital Signs: Initial Vital Signs Temp 98.1 F 05/03/18 14:31 Pulse 59 05/03/18 14:31 Resp 18 05/03/18 14:31 BP 178/85 05/03/18 14:31 Pulse Ox 100 05/03/18 14:31 Vital Signs Reviewed: Yes Eyes: Positive: Conjunctiva Clear, Other: - eomi/perrl ENT: Positive: Hearing grossly normal, Uvula midline. Negative: Nasal congestion, Nasal drainage, Trismus, Muffled voice, Hoarse voice, Sinus tenderness Neck: Positive: Supple, Nontender, Enlarged Nodes @ - mild ant cerv adenopathy Respiratory: Positive: Lungs clear, Normal breath sounds, No respiratory distress, No accessory muscle use Cardiovascular: Positive: RRR, No Murmur Abdomen Description: Positive: Nontender, No Organomegaly, Soft. Negative: CVA Tenderness (R), CVA Tenderness (L), Hepatomegaly, Splenomegaly Musculoskeletal: Positive: Strength Intact, ROM Intact, No Edema Neurological: Positive: Alert Psychological Exam: Normal Skin Exam: Normal Diagnostics - Laboratory Diagnostic Studies Completed/Ordered: UA ++RBCs Dizzy Course/Dx - Differential Dx/Diagnosis Provider Diagnoses: dizziness/fatigue of uncertain cause. hypertension. hematuria Discharge - Sign-Out/Discharge Documenting (check all that apply): Patient Departure - Discharge Plan Condition: Stable Disposition: HOME Patient Education Materials: Lightheadedness (ED) Referrals: Chela Mccabe MD [Primary Care Provider] - As Soon As Possible Additional Instructions: call Dr. Urrutia's office in AM to discuss symptoms and an appt time see you re BP and your other concerns you had blood in your urine today and that needs to be rechecked 178/85 recheck 157/85 - Billing Disposition and Condition Condition: STABLE Disposition: Home
[2018-05-03 15:46] VITALS: BP 157/85
== END 2018-05-03 15:51 | disposition home or self-care (01) ==
LOC: UCCORT 12:55
DX: R42 Dizziness and giddiness (principal); R53.83 Other fatigue; I10 Essential (primary) hypertension; R31.9 Hematuria, unspecified; Z88.6 Allergy status to analgesic agent
CPT/HCPCS: 36415; 81003; 86038; 86431; 99211; G0463

== ENCOUNTER 2019-02-28 20:47 | Emergency (ER) | payer BC, OTHER ==
--- OUTSIDE RECORDS SUMMARY | 2019-02-28 20:56 | XMS REPORT | Continuity of Care Document ---
:1965 External Reference #:[id number] Author Name Cara Rasmussen Care Team Providers Name Role Phone Chela Mccabe MD Care Team Information Siding Mechanic Unavailable Chela Mccabe MD Primary Care Physician Unavailable Payers Date Identification Numbers Payment Provider Subscriber Policy Number: [id number] [facility] Plan Khadijah Mcclendon PayID: [id number] [address] [place] [address] Problems Active Problems Provider Date Allergic rhinitis Onset: 07/24/2017 Anxiety state Onset: 12/21/2014 Benign essential hypertension Onset: 10/10/2010 Postoperative hypothyroidism Onset: 12/15/2009 Viremia Zack Arthur MD Onset: 10/13/2018 Allergic rhinitis due to pollen Zack Arthur MD Onset: 10/13/2018 Family History Date Family Member(s) Observation Comments General No Current Problems Social History Type Date Description Comments Sex Unknown Tobacco Use Start: Unknown Home is not smoke-free spouse smokes outside Pets 1 cat Pets 1 dog Tobacco Use Start: Unknown Patient has never smoked Tobacco Use Start: Unknown Second Hand Smoke Exposure spouse smokes outside In The Home Smoking Status Reviewed: 10/27/18 Second Hand Smoke Exposure spouse smokes outside In The Home Allergies, Adverse Reactions, Alerts Active Allergies Reaction Severity Comments Date Percocet 10/13/2018 Medications Active Medications SIG Qnty Indications Ordering Date Provider Jill Allergy take one tab by 30tabs J30.1 Zack Max 180mg Tablets mouth daily in MD Jerson 9 the morning. Nasonex 2 intranasal 17gm J30.1 Zack Max 50mcg/Act Suspension puffs every day MD Jerson 9 Levothyroxine Sodium 1 by mouth every 90tabs E89.0 Chela Mccabe, 88mcg day 8 Tablets Propranolol HCL 1 -2 tabs by 60tabs F41.1 Chela Mccabe, 10mg Tablets mouth every 6 MD 1 hours as needed for anxiety sx Enalapril Maleate take 1 tablet 90tabs I10 Chela Mccabe, 10mg Tablets daily MD 0 Hydrochlorothiazide take 1 tablet 90tabs I10 Chela Mccabe, 12.5mg daily MD 0 Tablets History Medications Xyzal Allergy 24HR take 1 tablet 30tabs J30.1 Zack Max 10/13/2018 - (5 mg) by oral MD Jerson 10/27/2018 5mg Tablets route once daily as needed Fluticasone 2 sprays to 15.800units H68.012 Chela Mccabe, 01/23/2018 - Propionate each nostril 10/13/2018 as needed 50mcg/Act Suspension Jill Allergy 1 by mouth Unknown - every day 10/13/2018 180mg Tablets Immunizations CPT Code Status Date Vaccine Lot # [id number] Given 07/28/2013 Tetanus, Diphtheria Toxoids/Acellular Pertussis Vaccine 7 Or > [id number] Refused 09/04/2018 Influenza Virus Split 3 Yrs And Above For Intramuscular Use 07397 Refused 02/27/2018 Influenza Virus Split 3 Yrs And Above For Intramuscular Use 65298 Refused 01/19/2016 Influenza Virus Split 3 Yrs And Above For Intramuscular Use Vital Signs Date Vital Result Comment 02/09/2019 2:40pm BP Systolic 104 mmHg BP Diastolic 80 mmHg Height 62 inches 5'2" Weight 152.00 lb BMI (Body Mass Index) 27.8 kg/m2 Heart Rate 74 /min Respiratory Rate 18 /min O2 % BldC Oximetry 97 % 10/27/2018 2:34pm BP Systolic 129 mmHg BP Diastolic 81 mmHg Height 62 inches 5'2" Weight 153.00 lb BMI (Body Mass Index) 28.0 kg/m2 Heart Rate 83 /min Respiratory Rate 16 /min O2 % BldC Oximetry 98 % 10/13/2018 3:03pm BP Systolic 136 mmHg BP Diastolic 84 mmHg Height 62 inches 5'2" Weight 153.00 lb BMI (Body Mass Index) 28.0 kg/m2 Heart Rate 83 /min Respiratory Rate 18 /min O2 % BldC Oximetry 98 % 09/04/2018 3:11pm BP Systolic 132 mmHg BP Diastolic 78 mmHg Height 62 inches Weight 150.00 lb BMI (Body Mass Index) 27.4 kg/m2 Heart Rate 77 /min Respiratory Rate 16 /min Results Test Date Facility Test Result H/L Range Note Laboratory test 08/27/2018 N2N/CCD Import Thyroid Stim 1.21 uIU/mL 0.3- 4.2 1 finding Hormone Basic Metabolic 08/27/2018 N2N/CCD Import Anion Gap 8 mEq/L 8-16 Panel BUN 18 mg/dL 7-18 BUN/Creat 22.5 ratio Calcium 8.6 mg/dL 8.5-10.1 Carbon Dioxide 28 mmol/L 21-32 Chloride 104 mmol/L 98-107 Creatinine 0.8 mg/dL 0.6-1.3 Glom Filtration Rate, Estimate >60 mL/min Glucose 117 mg/dL High 74-106 If >60 mL/min 2 Potassium 3.4 mmol/L Low 3.5-5.1 Sodium 140 mmol/L 136-145 CBS W/Automated Diff 08/27/2018 N2N/CCD Import Bas% 0.3 % 0-1.1 Baso # 0.02 K/uL 0-0.1 Eo% 2.3 % 0-6.6 Eos # 0.16 K/uL 0-0.5 Hematocrit 38.8 % 36-46.1 Hemoglobin 13.2 gm/dL 11.6-15.8 Lymph # 1.97 K/uL 1-4 Lymph % 28.6 % 20-42 Mean Cell Volume 92.4 fl 80.9-99 Mean Corpuscular HGB 31.4 pg 25.9-32.7 Mean Corpuscular HGB Conc 34.0 g/dL 30.8-34.3 Mean Platelet Volume 8.7 fL Low 8.9-12.4 [place] # 0.92 K/uL High 0.3-0.9 [place] % 13.3 % High 4.3-13.2 Neut# 3.83 K/uL 1.8-7 Neut% 55.5 % 40.4-72.8 Platelet Count 357 K/uL 155-360 Red Blood Count 4.20 M/uL 3.9-5.4 Red Cell Distri Width %CV 12.6 % 11.7-14.4 Red Cell Distri Width SD 40.8 fl 3-47 White Blood Count 6.9 K/uL 3.1-10.7 Laboratory test finding 05/18/2018 N2N/CCD Import Esr 23 mm/hr High 0-20 3 Free T4 1.16 ng/dL 0.7-1.48 T3,Free 2.19 pg/mL 1.71-3.71 TSH 0.77 uIU/mL 0.35-4.94 Thyroglobulin AutoAB 13.00 IU/mL 0-40 4 Thyroid Peroxidase Antibody 5.10 IU/mL 0-25 5 Laboratory test 04/23/2018 N2N/CCD Import CRP (C-Reactive) 0.12 mg/dL 0- 0.75 finding Esr 38 mm/hr High 0-20 TSH 0.58 uIU/mL 0.35-4.94 CBC with Auto Diff-fcmg 04/23/2018 N2N/CCD Import Abs Basophils 0.1 K/uL 0-0.3 Abs Eosinophils 0.2 K/uL 0-0.5 Abs Lymphocytes 1.9 K/uL 0.8-5.5 Abs Monocytes 0.8 K/uL 0.1-1 Abs Neutrophils 4.6 K/uL 2.1-8 Basophil 0.8 % 0-4 Eosinophil 2.6 % 0-5 Hematocrit 38.9 % 36-47 Hemoglobin 13.4 gm/dL 12-16 Lymphocyte 25.4 % 16-52 MCH 30.4 pg 27-32 MCHC 34.4 g/dL 32-36 MCV 88.4 fL 80-97 MPV 6.9 FL Low 7.1-10.7 Monocyte 10.5 % High 2-10 Neutrophil 60.7 % 35-75 PLT Count 393 K/ul 140-400 RBC 4.40 M/uL 4-5.4 RDW 12.1 % 11.5-14.5 WBC 7.5 K/uL 4.1-11 Comprehensive Met Panel-FCMG 04/23/2018 N2N/CCD Import A/G Ratio 1.8 Ratio 1-2.2 Nella Egfr >60 6 Albumin 4.6 g/dL 3.6-4.9 Alkaline Phosphatase 73 U/L 24-140 Alt 15 U/L 3-42 Anion Gap 10 mmol/L 5-15 7 Ast 14 U/L 8-42 BUN 19 mg/dL 6-26 Calcium 10.1 mg/dL 8.5-10.2 Carbon Dioxide 29 mmol/L 24-34 Chloride# 103 mmol/L 97-110 8 Creatinine 0.8 mg/dL 0.5-1.4 Globulin 2.6 g/dL 2-3.5 Glucose 99 mg/dL 70-105 Non Nella Egfr >60 9 Potassium 3.9 mmol/L 3.5-5.2 Sodium 142 mmol/L 135-146 10 Total Bilirubin 0.6 mg/dL 0.1-1.3 Total Protein 7.2 g/dL 6-8 Laboratory test finding 04/23/2018 N2N/CCD Import Cortisol 13.9 g/dL 11, 12 Ebv Early Ag Igg @ Negative Ebv Nuclear Ag Igg @ Positive 13 Ebv Vca Igg @ Positive 14 Ebv Vca Igm @ Negative Lyme Igm/Igg AB @ Negative 15 Laboratory test finding 02/12/2018 N2N/CCD Import Free T3 2.59 pg/mL 2.18-3.98 16 Free T4 1.22 ng/dL 0.76-1.46 Thyroid Stim Hormone 1.69 uIU/mL 0.3-4.2 Triiodothyronine,Total 90 ng/dL 71-180 17 CBC With Auto Diff 02/12/2018 N2N/CCD Import Bas% 0.4 % 0-1.1 Baso # 0.03 K/uL 0-0.1 Eo% 1.4 % 0-6.6 Eos # 0.10 K/uL 0-0.5 Hematocrit 40.6 % 36-46.1 Hemoglobin 13.6 gm/dL 11.6-15.8 Lymph # 2.49 K/uL 1-4 Lymph % 33.9 % 20-42 Mean Cell Volume 93.3 fl 80.9-99 Mean Corpuscular HGB 31.3 pg 25.9-32.7 Mean Corpuscular HGB Conc 33.5 g/dL 30.8-34.3 Mean Platelet Volume 9.3 fL 8.9-12.4 [place] # 0.78 K/uL 0.3-0.9 [place] % 10.6 % 4.3-13.2 Neut# 3.95 K/uL 1.8-7 Neut% 53.7 % 40.4-72.8 Platelet Count 351 K/uL 155-360 Red Blood Count 4.35 M/uL 3.9-5.4 Red Cell Distri Width %CV 12.7 % 11.7-14.4 Red Cell Distri Width SD 42.0 fl 3-47 White Blood Count 7.4 K/uL 3.1-10.7 CMP, Comprehensive Metabolic-F 02/12/2018 N2N/CCD Import Alb/Glob 1.0 ratio Albumin 3.9 g/dL 3.4-5 Alkaline Phosphatase 70 U/L 45-117 Anion Gap 8 mEq/L 8-16 BUN 19 mg/dL High 7-18 BUN/Creat 19.0 ratio Bilirubin,Total 0.3 mg/dL 0.2-1 Calcium 8.7 mg/dL 8.5-10.1 Carbon Dioxide 28 mmol/L 21-32 Chloride 104 mmol/L 98-107 Creatinine 1.0 mg/dL 0.6-1.3 Globulin 3.9 g/dL 1.9-4.3 Glom Filtration Rate, Estimate >60 mL/min Glucose 93 mg/dL 74-106 If >60 mL/min 18 Potassium 3.3 mmol/L Low 3.5-5.1 SGPT/Alt 24 U/L 12-78 Sgot/Ast 12 U/L Low 15-37 19 Sodium 140 mmol/L 136-145 Total Protein 7.8 g/dL 6.4-8.2 Laboratory test 07/16/2017 N2N/CCD Import Thyroid Stim 1.24 uIU/mL 0.3- 4.2 20 finding Hormone 1 I10 E89.0 E89.0 2 Note: Persistent reduction for 3 months or more in an eGFR <60 mL/min/1.73 m2 defines CKD. Patients with eGFR values >/=60 mL/min/1.73 m2 may also have CKD if evidence of persistent proteinuria is present. The original MDRD equation for estimated GFR is not valid for patients less than 18 years of age. Additional information may be found at www.kdoqi.org. 3 Specimen received unspun X2 soon 4 Interpretation: 0-40 Negative 41-60 Equivocal >60 Positive 5 Interpretation: 0-25 Negative 26-35 Equivocal >35 Positive 6 Concerning GFR Guidelines for Americans: Normal function or mild renal disease, if clinically at risk: >/=60 mL/min Moderately decreased: 30-59 Severely decreased: 15-29 Renal failure: <15 7 Updated Reference Range 8 Updated reference range on new analyzer 9 Concerning GFR Guidelines: Normal function or mild [...] drugs that are excreted by the kidneys. 10 Updated reference range on new analyzer 11 today 12 CORTISOL REFERENCE RANGE: 7-9AM 4.3 - 22.4 MCG/DL 4-6PM 3.1 - 16.7 MCG/DL LATE AFTERNOON LEVELS FALL TO APPROX. 1/2 AM VALUE. RESULTS REVIEWED Unless otherwise specified, testing performed [place] [address] 13 May indicate a current or previous infection. Unless otherwise specified, testing [place] [address] 14 May indicate a current or previous infection. 15 A Negative serologic test for Lyme Disease indicates no serologic evidence of infection with B burgdorferi at the time this specimen was collected. A repeat specimen should be collected in 2 to 4 weeks if clinically indicated. Unless otherwise specified, testing performed [place] [address] 16 E89.0 I10 17 Performed at: RN - [facility] [address] [id number] Message Broker Developer: Jennifer Puhg MD, Phone: [phone] 18 Note: Persistent reduction for 3 months [...] normal populations. Clinical correlation is suggested. 20 E89.0 Procedures Date Code Description Status 10/13/2018 32249 Allergy Tests Percutaneous W/ Allergenic Extracts Completed 71224 Zoster (Shingles) Vaccine (HZV), Recombinant, Subunit, Completed Adjuvanted Encounters Type Date Location Provider Dx Diagnosis Office Visit 10/27/2018 2:30p FELIPE Adair J30.89 Other allergic rhinitis J30.1 Allergic rhinitis due to pollen Office Visit 10/13/2018 3:00p Aurelio Arthur J30.1 Allergic rhinitis MD due to pollen J30.89 Other allergic rhinitis B34.9 Viral infection, unspecified Plan of Treatment Future Appointment(s):10/28/2019 4:00 pm - FELIPE Cuellar at [place]
--- OUTSIDE RECORDS SUMMARY | 2019-02-28 20:56 | XMS REPORT | Continuity of Care Document ---
:1965 External Reference #:[id number] Author Name Ondina Matthew NP Address [address] [place] [address] Care Team Providers Name Role Phone Chela Mccabe MD Care Team Information Dot Etcher Unavailable Chela Mccabe MD Primary Care Physician Unavailable Payers Date Identification Numbers Payment Provider Subscriber Policy Number: [id number] [facility] Khadijah Mcclendon PayID: [id number] [address] [place] [address] Family History Date Family Member(s) Observation Comments General asthma/allergies-mother Social History Type Date Description Comments Sex Unknown Marital Status Occupation [employer] Tobacco Use Start: Unknown Never Smoked Cigarettes ETOH Use Drinks Alcoholic Beverages Rarely Allergies, Adverse Reactions, Alerts Active Allergies Reaction Severity Comments Date Percocet 10/25/2013 Inactive Allergies NKDA 10/30/2007 Medications Active Medications SIG Qnty Indications Ordering Date Provider Levothyroxine Sodium 1 tab every 90tabs Marvel Urrutia, 05/01/2018 88mcg morning M.D. Tablets Enalapril Maleate Unknown 10mg Tablets Hydrochlorothiazide Unknown 12.5mg Capsules History Medications Prednisone 1 by mouth 7tabs Marvel Urrutia, 03/19/2018 - 20mg Tablets every day M.D. 09/10/2018 Prednisone 1 by mouth 5tabs Marvel Urrutia, 01/24/2017 - 20mg Tablets every day M.D. 02/17/2017 Dexamethasone 1 by mouth 7tabs Marvel Urrutia, 01/22/2017 - 2mg Tablets every day M.D. 01/23/2017 Dexamethasone 1 by mouth 2tabs Marvel Urrutia, 06/24/2016 - 6mg Tablets every day M.D. 01/21/2017 Prednisone 40 mg daily for 30tabs Renan Marvel, 10/25/2013 - 10mg Tablets 3 days, 30 mg M.D. 01/18/2015 daily for next 3 days 20 mg daily for the 3 days, 10 mg for 3 days Synthroid 2 PO qd 90tabs Marvel Urrutia, 10/30/2007 - 50mcg Tablets M.D. 01/23/2010 Jolivette Qday Unknown - 0.35mg Tablets 01/18/2015 Synthroid 1 tab. qday Unknown - 88mcg Tablets 10/25/2013 Levothyroxine Sodium 2 po qd due to Unknown - 50mcg issue with dye 05/01/2018 Tablets Vital Signs Date Vital Result Comment 01/28/2019 9:53am Weight 152.00 lb Height 62 inches 5'2" BMI (Body Mass Index) 27.8 kg/m2 BP Systolic 143 mmHg BP Diastolic 88 mmHg Heart Rate 74 /min O2 % BldC Oximetry 98 % Body Temperature 97.4 F Pain Level 0 09/10/2018 3:37pm Weight 149.00 lb Height 62 inches 5'2" BMI (Body Mass Index) 27.2 kg/m2 BP Systolic 144 mmHg BP Diastolic 88 mmHg Heart Rate 69 /min O2 % BldC Oximetry 99 % Body Temperature 97.8 F Pain Level 0 06/12/2018 10:01am Weight 142.00 lb Height 62 inches 5'2" BMI (Body Mass Index) 26.0 kg/m2 BP Systolic 129 mmHg BP Diastolic 86 mmHg Heart Rate 81 /min O2 % BldC Oximetry 97 % Body Temperature 97.8 F Pain Level 0 03/10/2018 3:25pm Weight 136.00 lb Height 62 inches 5'2" BMI (Body Mass Index) 24.9 kg/m2 BP Systolic 142 mmHg BP Diastolic 83 mmHg Heart Rate 69 /min O2 % BldC Oximetry 97 % Body Temperature 98.8 F Pain Level 0 02/18/2017 4:20pm Weight 140.00 lb Height 62 inches 5'2" BMI (Body Mass Index) 25.6 kg/m2 Heart Rate 73 /min O2 % BldC Oximetry 96 % Body Temperature 99.4 F 01/22/2017 11:56am Weight 136.00 lb Height 62 inches 5'2" BMI (Body Mass Index) 24.9 kg/m2 BP Systolic 125 mmHg BP Diastolic 84 mmHg Heart Rate 77 /min O2 % BldC Oximetry 98 % Body Temperature 99.0 F 06/21/2016 4:11pm Weight 143.00 lb Height 62 inches 5'2" BMI (Body Mass Index) 26.2 kg/m2 BP Systolic 128 mmHg BP Diastolic 74 mmHg Heart Rate 75 /min O2 % BldC Oximetry 100 % Body Temperature 97.8 F 01/19/2015 3:41pm Weight 135.00 lb Height 62 inches 5'2" BMI (Body Mass Index) 24.7 kg/m2 BP Systolic 116 mmHg BP Diastolic 64 mmHg Heart Rate 65 /min O2 % BldC Oximetry 98 % Body Temperature 99.0 F 10/25/2013 2:24pm Weight 132.00 lb Height 62 inches 5'2" BMI (Body Mass Index) 24.1 kg/m2 BP Systolic 142 mmHg BP Diastolic 88 mmHg Heart Rate 80 /min Body Temperature 98.6 F 01/09/2013 10:44am Weight 130.00 lb Height 62 inches 5'2" BMI (Body Mass Index) 23.8 kg/m2 BP Systolic 120 mmHg BP Diastolic 70 mmHg Heart Rate 67 /min O2 % BldC Oximetry 95 % Body Temperature 98.9 F 01/23/2010 11:10am Weight 136.50 lb Height 62 inches 5'2" BMI (Body Mass Index) 25.0 kg/m2 BP Systolic 168 mmHg BP Diastolic 99 mmHg Heart Rate 78 /min Body Temperature 98.9 F 01/10/2009 8:48am Weight 138.00 lb Height 62 inches 5'2" BMI (Body Mass Index) 25.2 kg/m2 BP Systolic 162 mmHg BP Diastolic 98 mmHg 10/30/2007 3:11pm Weight 136.50 lb Heart Rate 80 /min O2 % BldC Oximetry 99 % Results Test Date Facility Test Result H/L Range Note TSH+Free T4 12/24/2018 [facility] Thyroid Stim 1.01 uIU/mL N 0.30-4.[address] [place] [address] [phone] Free T4 1.03 ng/dL N 0.76-1.46 Food Allergy 09/10/2018 [facility] Egg White Allergen <0.35 kU/ L [address] [place] [address] [phone] Julian Allergen IgE <0.35 kU/L 3 Egg Yolk Allergen IgE <0.35 kU/L 4 Cow's Milk Allergen IgE <0.35 kU/L 5 Peanut Allergen IgE <0.10 kU/L 6 Soybean Allergen IgE <0.35 kU/L 7 Wheat Allergen IgE <0.35 kU/L 8 [place] ENT Allergy 09/10/2018 [facility] Bermuda Grass 0.38 kU/ L [address] [place] [address] [phone] Silver Birch IgE <0.35 kU/L 10 [place] Maple IgE <0.35 kU/L 11 Mountain Choctaw Allergen IgE <0.35 kU/L 12 Cocklebur Allergen IgE 0.66 kU/L 13 [place] Allergen IgE <0.35 kU/L 14 Dandelion Allergen IgE <0.35 kU/L 15 Elm Tree Allergen IgE <0.35 kU/L 16 Kuwaiti Plantain Allergen IgE <0.35 kU/L 17 Pinas Allergen IgE 0.65 kU/L 18 White [place] River Tree Allerg IgE <0.35 kU/L 19 [place] Blue (February) Grass IgE 2.34 kU/L 20 Rogers's Quarter Allergen IgE <0.35 kU/L 21 [place] Tree Allergen IgE <0.35 kU/L 22 [place]wood Allergen IgE <0.35 kU/L 23 Rough Pigweed Allergen IgE <0.35 kU/L 24 [place] Tree Allergen IgE <0.35 kU/L 25 Common Ragweed (Short) Allerge 2.69 kU/L 26 Giant Ragweed Allergen IgE 1.54 kU/L 27 Concord Tree Allergen IgE <0.35 kU/L 28 [place] Grass Allergen IgE 1.52 kU/L 29 Sheep Vine Grove Allergen IgE <0.35 kU/L 30 Edgar Grass Allergen IgE 2.07 kU/L 31 White Tu Allergen IgE <0.35 kU/L 32 [place] Tree Allergen IgE <0.35 kU/L 33 Laboratory test 09/10/2018 [facility] Chocolate <0.35 kU/L [address] [address] [phone] Coconut Allergen IgE <0.35 kU/L 35 Cockroach Allergen IgE <0.35 kU/L 36 Cow Epithelium Allergen IgE <0.35 kU/L 37 Dog Dander Allergen IgE <0.35 kU/L 38 Garlic Allergen IgE <0.35 kU/L 39 Horse Dander Allergen IgE <0.35 kU/L 40 Malt Allergen IgE Antibody <0.35 kU/L 41 Onion Allergen IgE <0.35 kU/L 42 Guinea Pig Allergen IgE <0.35 kU/L 43 [place] ENT 09/10/2018 [facility] Alternaria tenuis <0.35 kU/L [address] [place] [address] [phone] A pullulans IgE Allergen <0.35 kU/L 45 Aspergillus Fumigatus IgE <0.35 kU/L 46 Botrytis Allergen IgE <0.35 kU/L 47 Lisa albicans Allergen IgE <0.35 kU/L 48 Cladosporium herbarum IgE <0.35 kU/L 49 Dermatophagoides farinae IgE 25.8 kU/L 50 Dermatophagoides pteronyssinus 39.1 kU/L 51 Epicoccum Allergen IgE <0.35 kU/L 52 Fusarium moniliforme Allergen <0.35 kU/L 53 Helminthosporium halodes IgE <0.35 kU/L 54 House Dust/Sanchez Allergen IgE 0.47 kU/L 55 House Dust/[place] Jorge IgE 1.82 kU/L 56 Mucor racemosus Allergen IgE <0.35 kU/L 57 Penicillium notatum Allerg IgE <0.35 kU/L 58 Rhizopus nigricans Allerg IgE <0.35 kU/L 59 Stemphyllium IgE Allergen <0.35 kU/L 60 Trichophyton rubrum Allergen <0.35 kU/L 61 Ustilago nuda IgE Allergen <0.35 kU/L 62 Laboratory test 09/10/2018 [facility] Black/White Pepper <0.35 kU/L [address] [place] [address] [phone] Cat Epithelium Allergen IgE 0.37 kU/L 64 Chicken Feathers Allergen IgE <0.35 kU/L 65 Duck Feathers, IgE <0.35 kU/L 66 [place] Feathers, IgE <0.35 kU/L 67 Chicken Meat Allergen IgE <0.35 kU/L 68 [place] Allergen IgE <0.35 kU/L 69 Rice Allergen IgE <0.35 kU/L 70 Tomato Allergen IgE <0.35 kU/L 71 Rebollar's Yeast Allergen IgE <0.35 kU/L 72 Goose Feathers Allergen IgE Ab <0.35 kU/L 73 TSH+Free T4 06/18/2018 [facility] Thyroid Stim 0.82 uIU/mL N 0.30-4.[address] Hormone [place], [place] [id number] [phone] Free T4 1.08 ng/dL N 0.76-1.46 Thyroid 06/05/2018 [facility] Thyroglobulin < 1.0 0.0-0.9 75 , [address] Antibody IU/[place] [address] [phone] Thyroid Peroxidase Antibodies 11 IU/mL 0-34 77 Comprehensive Blanca 06/05/2018 [facility] Katherine-1 Antibody <0.2 AI 0.0-0.[address] [place] [address] [phone] Centromere B Antibodies < 0.2 AI 0.0-0.9 Scleroderma Antibodies, SCL-70 <0.2 AI 0.0-0.9 See below: (SEE NOTE) 78 Systemic Lupus 06/05/2018 [facility] Ra Latex <10.0 IU/mL 0.0 -13.9 Erythem. Profil [address] [place] [address] [phone] Anti-Dna Antibody (Ho-Chunk) 1 IU/mL 0-9 79 SM Antibody <0.2 AI 0.0-0.9 PRIME MINISTER Antibody <0.2 AI 0.0-0.9 Sjogrens Antibodies (Ssa) <0.2 AI 0.0-0.9 Antichromatin Antibodies <0.2 AI 0.0-0.9 Sjogrens Antibodies (SSB) <0.2 AI 0.0-0.9 Laboratory test 06/02/2018 [facility] Cytology SEE RESULT 80, [address] Non-Dimension [place] [address] [phone] Laboratory test 06/21/2016 [facility] Surgical SEE RESULT [address] Pathology BELOW [place], [place] [address] [phone] 1 E03.9 2 Class 0 (Negative <0.35) 3 Class 0 (Negative <0.35) 4 Class 0 (Negative <0.35) 5 Class 0 (Negative <0.35) 6 Class 0 (Negative <0.10) 7 Class 0 (Negative <0.35) 8 Class 0 (Negative <0.35) Test Performed by: [place] [address] 9 Class 1 (Equivocal 0.35-0.69) 10 Class 0 (Negative <0.35) 11 Class 0 (Negative <0.35) 12 Class 0 (Negative <0.35) 13 Class 1 (Equivocal 0.35-0.69) 14 Class 0 (Negative <0.35) 15 Class 0 (Negative <0.35) 16 Class 0 (Negative <0.35) 17 Class 0 (Negative <0.35) 18 Class 1 (Equivocal 0.35-0.69) 19 Class 0 (Negative <0.35) 20 Class 2 (Positive 0.70-3.49) 21 Class 0 (Negative <0.35) 22 Class 0 (Negative <0.35) 23 Class 0 (Negative <0.35) 24 Class 0 (Negative <0.35) 25 Class 0 (Negative <0.35) 26 Class 2 (Positive 0.70-3.49) 27 Class 2 (Positive 0.70-3.49) 28 Class 0 (Negative <0.35) Test Performed by: [place] [address] 29 Class 2 (Positive 0.70-3.49) 30 Class 0 (Negative <0.35) 31 Class 2 (Positive 0.70-3.49) 32 Class 0 (Negative <0.35) 33 Class 0 (Negative <0.35) 34 Class 0 (Negative <0.35) Test Performed by: [place] [address] 35 Class 0 (Negative <0.35) Test Performed by: [place] [address] 36 Class 0 (Negative <0.35) Test Performed by: [place] [address] 37 Class 0 (Negative <0.35) Test Performed by: [place] [address] 38 Class 0 (Negative <0.35) Test Performed by: [place] [address] 39 Class 0 (Negative <0.35) Test Performed by: [place] [address] 40 Class 0 (Negative <0.35) Test Performed by: [place] [address] 41 Class 0 (Negative <0.35) Test Performed by: [place] [address] 42 Class 0 (Negative <0.35) Test Performed by: [place] [address] 43 Class 0 (Negative <0.35) Test Performed by: [place] [address] 44 Class 0 (Negative <0.35) 45 Class 0 (Negative <0.35) 46 Class 0 (Negative <0.35) 47 Class 0 (Negative <0.35) 48 Class 0 (Negative <0.35) 49 Class 0 (Negative <0.35) 50 Class 4 (Strongly Positive 17.5-49.9) 51 Class 4 (Strongly Positive 17.5-49.9) 52 Class 0 (Negative <0.35) 53 Class 0 (Negative <0.35) 54 Class 0 (Negative <0.35) 55 Class 1 (Equivocal 0.35-0.69) 56 Class 2 (Positive 0.70-3.49) Test Performed by: [place] [address] 57 Class 0 (Negative <0.35) 58 Class 0 (Negative <0.35) 59 Class 0 (Negative <0.35) 60 Class 0 (Negative <0.35) 61 Class 0 (Negative <0.35) 62 Class 0 (Negative <0.35) ADDITIONAL INFORMATION This test was developed using an analyte specific reagent. Its performance characteristics were determined by [facility] in a manner consistent with CLIA requirements. This test has not been cleared or approved by the U.S. Food and Drug Administration. 63 Class 0 (Negative <0.35) Test Performed by: [place] [address] 64 Class 1 (Equivocal 0.35-0.69) Test Performed by: [place] [address] 65 Class 0 (Negative <0.35) Test Performed by: [place] [address] 66 Class 0 (Negative <0.35) Test Performed by: [place] [address] 67 Class 0 (Negative <0.35) Test Performed by: [place] [address] 68 Class 0 (Negative <0.35) Test Performed by: [place] [address] 69 Class 0 (Negative <0.35) Test Performed by: [place] [address] 70 Class 0 (Negative <0.35) Test Performed by: [place] [address] 71 Class 0 (Negative <0.35) Test Performed by: [place] [address] 72 Class 0 (Negative <0.35) Test Performed by: [place] [address] 73 Class 0 (Negative <0.35) Test Performed by: [place] [address] 74 E04.2 E89.0 75 E04.2 76 Thyroglobulin Antibody measured by Arsenio Sharmaine Methodology 77 Performed at: - [facility] [id number] Senior Reservations Agent: Jennifer Pugh MD, Phone: [phone] 78 Autoantibody Disease Association Condition Frequency --------- Antinuclear Antibody, SLE, mixed connective Direct (BLANCA-D) tissue diseases --------- dsDNA SLE 40 - 60% --------- Chromatin Drug induced SLE 90% SLE 48 - 97% --------- SSA (Ro) SLE 25 - 35% Sjogren's Syndrome 40 - 70% Lupus 100% --------- SSB (La) SLE 10% Sjogren's Syndrome 30% --------- Sm (anti-Arthur) SLE 15 - 30% --------- PRIME MINISTER Mixed Connective Tissue Disease 95% (U1 nRNP, SLE 30 - 50% anti-ribonucleoprotein) Polymyositis and/or Dermatomyositis 20% --------- Scl-70 (antiDNA Scleroderma (diffuse) 20 - 35% topoisomerase) Crest 13% --------- Katherine-1 Polymyositis and/or Dermatomyositis 20 - 40% --------- Centromere B Scleroderma - Crest variant 80% 79 Negative <5 Equivocal 5 - 9 Positive >9 80 [id number] SEE RESULT BELOW Name: KHADIJAH MCCLENDON : [address]: Marvel Urrutia MD Acct: [id number] Unit: [id number] AGE: 53 Location: [facility] Re06/02/18 SEX: F Status: REG REF SPEC: [id number] DEVON: 06/02/18-[address] [facility] [address]: Marvel Urrutia MD REQ: [id number] RECD: 06/03/18 STATUS: SOUT _ ORDERED: FNA INTERP [facility] COMMENTS: [id number] FINAL DIAGNOSIS Thyroid, right, fine needle aspiration: Benign thyroid nodule- chronic lymphocytic thyroiditis ([place] class II). The specimen demonstrates abundant watery colloid, modest largely cohesive follicular epithelium arranged in uniform sheets, medium sized follicles and only occasional small groups demonstrating variable Hurthle cell metaplasia. No atypical Hurthle cells are seen. Lymphoid tangles, lymphocytes and plasma cells are seen in the background. No features of papillary carcinoma are seen. In this clinical setting the risk of malignancy is less than 3%. Clinical management of this thyroid nodule should be based on clinical and radiographic features as well as the above findings. THYROID RIGHT - RIGHT THYROID NODULE CLINICAL HISTORY Right thyroid nodule. GROSS DESCRIPTION 1 Alcohol fixed slide(s) received from clinician., 5 Air dried slide(s) and Needle rinse in CytoLyt solution for thin layer non-detention attendant test.(clear) CONTINUED ON NEXT PAGE DEPARTMENT OF PATHOLOGY, [address] [place] [address] Adama Trotter M.D. Director CLIA # [id number] RUN DATE: 06/04/18 [facility] LAB LIVE PAGE 2 Patient: KHADIJAH MCCLENDON [id number] (Continued) GROSS DESCRIPTION (Continued) Signed by and Reported on: Kelli Thayer MD 06/04/18 1151 END OF REPORT DEPARTMENT OF PATHOLOGY, [address] [place] [address] Adama Trotter M.D. Director [facility] # [id number] 82 SEE RESULT BELOW Name: MELLISA MCCLENDONPEPE Navarro : [address]: Marvel Urrutia MD Acct: [id number] Unit: [id number] AGE: 51 Location: [facility] Re06/21/16 SEX: F Status: REG REF SPEC: [id number] DEVON: 06/21/16-[facility]UR[facility] DR: Marvel Urrutia MD REQ: [id number] RECD: 06/21/16 STATUS: SOUT _ ORDERED: LEVEL IV COMMENTS: [id number] FINAL DIAGNOSIS Oral mucosa, right lower lip, excision: -- Fibroma. PRE-OPERATIVE DIAGNOSIS Oral lesion from right lower lip GROSS DESCRIPTION The specimen is received in formalin with no source identified and a requisition labeled, Oral Lesion from Right Lower Lip, and consists of a 0.6 x 0.4 x 0.3 cm lopez- white irregular to polypoid soft tissue fragment, which is inked, bisected and submitted entirely in one cassette. Signed (signature on file) Kelli Thayer MD 01/05 1241 END OF REPORT * ML=Testing performed at Main Lab DEPARTMENT OF PATHOLOGY, [address] [place] [address] Adama Trotter M.D. Director [facility] # [id number] Procedures Date Code Description Status 09/10/2018 49342 Tympanometry Completed 09/10/2018 23575 Audiometry, Comprehensive Completed 09/10/2018 94035 Ultrasound Head/Neck Completed 06/02/2018 75347 Ultrasonic Guide Needle Biopsy Completed 06/02/2018 64323 Fna W/Image Completed 03/10/2018 54262 Ultrasound Head/Neck Completed 06/21/2016 58691 Ultrasound Head/Neck Completed 06/21/2016 27582 Exc.Les.Vesti.Of Mouth With Rep. Completed 01/19/2015 89917 Ultrasound Head/Neck Completed 01/07/2014 40281 Tympanometry Completed 01/07/2014 90679 Audiometry, Comprehensive Completed 10/25/2013 05761 Tympanometry Completed 10/25/2013 35134 Audiometry, Comprehensive Completed 01/09/2013 09634 Ultrasound Head/Neck Completed 01/23/2010 09019 Ultrasound Head/Neck Completed 01/10/2009 64953 Ultrasound Head/Neck Completed Encounters Type Date Location Provider Dx Diagnosis Office Visit 01/28/2019 Main Office Ondina Sepulveda Vipul, H69.92 Unspecified 9:45a [employer] Eustachian tube disorder, left ear Office Visit 09/10/2018 Main Office Marvel Urrutia M.D. J31.0 Chronic rhinitis 3:30p E06.9 Thyroiditis, unspecified E03.9 Hypothyroidism, unspecified R51 Headache H90.3 Sensorineural hearing loss, bilateral Office Visit 06/12/2018 10:00a Main Office Marvel Urrutia, E06.9 Thyroiditis , M.D. unspecified E89.0 Postprocedural hypothyroidism R42 Dizziness and giddiness Office Visit 03/10/2018 3:15p Main Office Marvel Urrutia, E04.2 Nontoxic multinodular M.D. goiter E89.0 Postprocedural hypothyroidism Office Visit 02/18/2017 4:00p Main Office Marvel Urrutia, E89.0 Postprocedural M.D. hypothyroidism H69.83 Other specified disorders of Eustachian tube, bilateral Office Visit 01/22/2017 11:45a Main Office Marvel Urrutia, H69.83 Other specified M.D. disorders of Eustachian tube, bilateral Office Visit 06/21/2016 4:00p Main Office Marvel Urrutia, E89.0 Postprocedural M.D. hypothyroidism E04.2 Nontoxic multinodular goiter K13.79 Other lesions of oral mucosa Office Visit 01/19/2015 3:15p Main Office Marvel Urrutia, 244.0 Hypothyroidism M.D. Postsurgical 246.9 Thyroid Disorders Unspec 241.0 Goiter Nontoxic Uninodular Office Visit 10/25/2013 2:15p Main Office Erin, 389.15 Sensorineural Raquel PA Hearing Loss, Unilateral Office Visit 01/09/2013 10:45a Main Office Marvel Urrutia, 244.0 Hypothyroidism M.D. Postsurgical 246.9 Thyroid Disorders Unspec 470 Deviated Nasal Septum Office Visit 01/23/2010 10:45a Main Office Marvel Urrutia, 244.0 Hypothyroidism M.D. Postsurgical 246.9 Thyroid Disorders Unspec 470 Deviated Nasal Septum Office Visit 01/10/2009 8:45a Main Office Marvel Urrutia, 244.0 Hypothyroidism M.D. Postsurgical 246.9 Thyroid Disorders Unspec 470 Deviated Nasal Septum Office Visit 10/30/2007 2:45p Main Office Marvel Urrutia, 244.0 Hypothyroidism M.D. Postsurgical Plan of Treatment Future Appointment(s):04/15/2019 2:30 pm - Ondina Matthew NP at Main [facility]0103/04/2019 11:00 am - Reann Moyer at [facility] ([facility])
--- OUTSIDE RECORDS SUMMARY | 2019-02-28 20:56 | XMS REPORT | Continuity of Care Document ---
:1965 External Reference #:[id number] Author Name Ivone Driscoll M.D. 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 Onset: 07/14/2018 Family History Date Family Member(s) Observation Comments Father Alive Father Alzheimer's Disease Father Heart Disease Father wears glasses Mother Alive Mother wears glasses Mother cataracts Mother Osteoarthritis First Daughter Alive First Daughter No Current Problems First Daughter wears glasses Second Daughter Alive Second Daughter Celiac Disease Third Daughter Alive Third Daughter No Current Problems Aunt Age Related Macular Degeneration Social History Type Date Description Comments Sex Unknown Marital Status Occupation [place] ETOH Use Denies alcohol use Tobacco Use Start: Unknown Patient has never smoked Recreational Drug Use Never Used Drugs Smoking Status Reviewed: 12/28/18 Patient has never smoked Allergies, Adverse Reactions, Alerts Active Allergies Reaction Severity Comments Date Oxycodone 01/01/2016 Percocet Dizziness 02/01/2019 Medications Active Medications SIG Qnty Indications Ordering Date Provider Fexofenadine HCL 1 by mouth 60tabs Americo, 07/14/2018 60mg Tablets prn Jose Wiseman Levothyroxine Sodium 1 by mouth Unknown 88mcg Tablets every day Enalapril Maleate 1 by mouth Unknown 10mg Tablets every day Hydrochlorothiazide 1 by mouth Unknown 12.5mg Tablets every day Propranolol HCL take one Unknown 10mg Tablets tablet by mouth prn History Medications Jill Allergy 1 tab by mouth every day Unknown - 02/01/2019 60mg Tablets as needed Immunizations Description No Information Available Vital Signs Date Vital Result Comment 02/01/2019 2:53pm BP Systolic 132 mmHg BP Diastolic 87 mmHg Body Temperature 98.9 F Heart Rate 75 /min Respiratory Rate 20 /min Weight 155.50 lb O2 % BldC Oximetry 96 % Ra Pain Level 0 07/14/2018 10:06am BP Systolic 127 mmHg BP Diastolic 86 mmHg Body Temperature 97.6 F Heart Rate 78 /min Respiratory Rate 18 /min Weight 148.00 lb O2 % BldC Oximetry 99 % Pain Level 0 Results Test Date Facility Test Result H/L Range Note Urine Dipstick 02/01/2019 [facility] Color yellow Yellow Ua Clarity clear Clear Ua Leuko negative Negative Ua Nitrite negative Negative Ua Urobilinogen 0.2 0.2 - 1.0 E.U./dL Ua Protein nehative Negative Ua PH 6.0 Low 6.5-7.5 Ua Blood 80 High Negative Ua Specific [place] 1.025 1.010-1.030 Ua Ketones negative Negative Ua Bilirubin negative Negative Ua Glucose negative Negative Ua RFX Micro & Culture II 07/14/2018 [facility] Urine Color STRAW Yellow 1 [address] [place] [id number] [phone] Urine Clarity CLEAR Clear Urine Glucose - Dipstick NEGATIVE mg/dL Negative Urine Bilirubin - Dipstick NEGATIVE Negative Urine Ketone NEGATIVE mg/dL Negative Urine Specific [place] <=1.005 Low 1.010-1.030 Urine Blood SMALL Abnormal Negative Urine PH 6.0 Low 6.5-7.5 Urine Protein - Dipstick NEGATIVE mg/dL Negative Urine Urobilinogen - Dipstick 0.2 E.U./dL N 0.2-1.0 Urine Nitrite - Dipstick NEGATIVE Negative Urine Leuk Esterase NEGATIVE Negative Urine RBC 0-2 rbc/hpf 0-2 Urine WBC 0-2 wbc/hpf 0-7 Urine Epithelial Cells FEW /lpf None Seen Urine Bacteria VERY FEW None Seen Source: URINE, CLEAN CAT <SEE NOTE> 2 Urine Culture 07/14/2018 [facility] Urine Culture URETHRAL ELYSE [address] [place] [address] [phone] Quantity 10,000 - 50,000 <SEE NOTE> 3 Urine Dipstick 07/14/2018 [facility] Ua Color yellow Yellow Ua Clarity clear Clear Ua Leuko neg Negative Ua Nitrite neg Negative Ua Urobilinogen 3.5 High 0.2 - 1.0 E.U./dL Ua Protein neg Negative Ua PH 6.0 Low 6.5-7.5 Ua Blood 80 High Negative Ua Specific [place] 1.015 1.010-1.030 Ua Ketones neg Negative Ua Bilirubin neg Negative Ua Glucose neg Negative Laboratory test finding 03/17/2018 [facility] Import Appearance Clear Bacteria Negative [HPF] (Neg) Bilirubin Urine Negative (Neg) Blood/HGB Urine 1+ (Neg) Color Yellow Epithelial Cells Negative [HPF] (Neg) Glucose Urine Negative (Neg) Hyaline Casts 0.3 [LPF] (0-5) Ketone Urine Negative (Neg) Leuk Esterase Negative (Neg) Nitrite Urine Negative (Neg) PH Urine 6.0 1 (5.0-7.5) Protein Urine Negative (Neg) Spec Grav Urine 1.012 1 (1.003-1.030) Urine RBC 1.0 [HPF] (0-3) 4 Urine WBC 0.8 [HPF] (0-8) Urobilinogen 0.2 mg/dL (0-1.0) Laboratory test finding 02/27/2018 [facility] Import Appearance Clear Bacteria 1+ [HPF] (Neg) Bilirubin Urine Negative (Neg) Blood/HGB Urine 2+ (Neg) Color Yellow Epithelial Cells Negative [HPF] (Neg) Glucose Urine Negative (Neg) Hyaline Casts 1.6 [LPF] (0-5) Ketone Urine Negative (Neg) Leuk Esterase Negative (Neg) Nitrite Urine Negative (Neg) PH Urine 6.5 1 (5.0-7.5) Protein Urine Negative (Neg) Spec Grav Urine 1.014 1 (1.003-1.030) Urine RBC 9.7 [HPF] High (0-3) 5 Urine WBC 3.4 [HPF] (0-8) Urobilinogen 0.2 mg/dL (0-1.0) Laboratory test 02/27/2018 [facility] Import Urine Culture Microbiology res 6 finding <See Note> 1 R31.21 2 URINE, CLEAN CATCH 3 10,000 - 50,000 CFU/mL 4 Unless otherwise specified, testing performed by [facility] [address] [place] [id number] 5 Unless otherwise specified, testing performed by [facility] [address] [place] [id number] 6 Microbiology results SOURCE Clean Catch Midstream FINAL RESULT No growth Procedures Date Code Description Status 07/14/2018 85628 Measurement Post Voiding Residual Urine By Completed Ultrasound,Non-Imaging 06/23/2018 78521 Eye Exam Est Patient Comprehensive Completed 06/02/2018 09371 Gonioscopy Completed 06/02/2018 27677 Eye Exam Est Patient Comprehensive Completed 12/28/2015 09057 Gonioscopy Completed 12/28/2015 66265 Eye Exam New Patient Comprehensive Completed Encounters Type Date Location Provider Dx Diagnosis Office Visit 07/14/2018 Urology Ivone Driscoll, R31.21 Asymptomatic 10:00a MHunter microscopic hematuria Plan of Treatment 02/01/2019 - Ivone Driscoll M.D.R31.21 Asymptomatic microscopic hematuriaNew Labs:Ua RFX Micro & Culture II, Ordered: 02/01/19Comments:Patient had microscopic hematuria right before her period. I did offer her workup previously including a cystoscopy and a CT IVP. Patient wanted to hold off until we repeated today. Her dipstick is showing lots of this will be sent for urinalysis. If this shows microscopic hematuria patient is willing to proceed with a cystoscopy and a CT IVP otherwise she will see me as needed.
--- OUTSIDE RECORDS SUMMARY | 2019-02-28 20:56 | XMS REPORT | Continuity of Care Document ---
:1965 External Reference #:[id number] Author Name Zack Arthur MD Address [address] [place] [address] Care Team Providers Name Role Phone Chela Mccabe MD Care Team Information Bottom Turner Unavailable Chela Mccabe MD Primary Care Physician Unavailable Payers Date Identification Numbers Payment Provider Subscriber Policy Number: [id number] [facility] Plan Khadijah Mcclendon PayID: [id number] [address] [place] [address] Problems Active Problems Provider Date Allergic rhinitis [...] outside In The Home Smoking Status Reviewed: 02/09/19 Second Hand Smoke Exposure spouse smokes outside In The Home Allergies, Adverse Reactions, Alerts Active Allergies Reaction Severity Comments Date Percocet 10/13/2018 Medications Active Medications SIG Qnty Indications Ordering Date Provider Prednisone take 2 tablets 20tabs J30.89 Zack Max 10mg Tablets by mouth twice a MD Jerson 9 day for 5 days. take with food. Jill Allergy take one tab by 30tabs [...] CPT Code Status Date Vaccine Lot # [id number] Given 07/28/2013 Tetanus, Diphtheria Toxoids/Acellular Pertussis Vaccine 7 Or > [id number] Refused 09/04/2018 Influenza Virus Split 3 Yrs And Above For Intramuscular Use 12330 Refused 02/27/2018 Influenza Virus Split 3 Yrs And Above For Intramuscular Use 13804 Refused 01/19/2016 Influenza Virus Split 3 Yrs [...] Mean Platelet Volume 8.7 fL Low 8.9-12.4 [place] # 0.92 K/uL High 0.3-0.9 [place] % 13.3 % High 4.3-13.2 Neut# 3.83 [...] 30.8-34.3 Mean Platelet Volume 9.3 fL 8.9-12.4 [place] # 0.78 K/uL 0.3-0.9 [place] % 10.6 % 4.3-13.2 Neut# 3.95 K/uL [...] REVIEWED Unless otherwise specified, testing [place] [address] 13 May indicate a current or previous infection. Unless otherwise specified, [place] [address] 14 May indicate a current or previous infection. 15 A Negative serologic test for Lyme Disease indicates no serologic evidence of infection with B burgdorferi at the time this specimen was collected. A repeat specimen should be collected in 2 to 4 weeks if clinically indicated. Unless otherwise specified, testing performed [place] [address] 16 E89.0 I10 17 Performed at: - [facility] [id number] Terminal Operator: Jennifer Pugh MD, Phone: [phone] Note: Persistent reduction for 3 months [...] E89.0 Procedures Date Code Description Status 10/13/2018 24679 Allergy Tests Percutaneous W/ Allergenic Extracts Completed 02525 Zoster (Shingles) Vaccine (HZV), Recombinant, Subunit, Completed Adjuvanted Encounters Type Date Location Provider Dx Diagnosis Office Visit 02/09/2019 2:30p FELIPE Adair J30.89 Other allergic rhinitis J30.1 Allergic rhinitis due to pollen B34.9 Viral infection, unspecified Office Visit 10/27/2018 2:30p FELIPE Adair J30.89 Other allergic rhinitis J30.1 Allergic rhinitis due to pollen Office Visit 10/13/2018 3:00p Aurelio Arthur J30.1 Allergic rhinitis MD due to pollen J30.89 Other allergic rhinitis B34.9 Viral infection, unspecified Plan of Treatment Future Appointment(s):10/28/2019 4:00 pm - [facility] at [id number] - FELIPE CuellarJ30.89 Other allergic rhinitisNew Medication:Prednisone 10 mg - take 2 tablets by mouth twice a day for 5 days. take with food.Comments: Patient to take prednisone, as prescribed for 5 days. Patient to continue Nasonex for prophylaxis of her nose and Jill for breakthrough nasal symptoms. Patient will follow-up with ENT (Dr. Urrutia) to pursue a CT scan of her sinuses and to follow through with their recommendations.J30.1 Allergic rhinitis due to hzauexL50.9 Viral infection, unspecified
[2019-02-28 21:07] VITALS: BP 167/75
--- NOTE | 2019-02-28 21:12 | UC ---
Ear Complaint HPI - HPI Summary HPI Summary: 53-year-old female presents with complaints of left ear fullness for the past week. Over the last 3 days she has started developing pain in that ear as well. Symptoms are associated with "muffled hearing "in the left ear, nasal congestion, sinus pressure, and occasional dry nonproductive cough. States she is currently under the care of Dr. 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 She was last seen by Dr. Urrutia's nurse practitioner in January and she was told that she had some left eustachian tube dysfunction with a serous otitis. Started on mometasone nasal spray. She is supposed to be returning to the office in 2 weeks for a procedure. Denies fever, chills, ear drainage, or sore throat. - History of Current Complaint Stated Complaint: BILATERAL EAR CONCERN Time Seen by Provider: 02/28/19 20:50 Hx Obtained From: Patient Hx Last Menstrual Period: 02/08/14 Pain Intensity: 6 - Allergies/Home Medications Allergies/Adverse Reactions: Allergies Allergy/AdvReac Type Severity Reaction Status Date / Time acetaminophen [From Percocet] Allergy Dizziness Verified 02/28/19 20:56 oxycodone [From Percocet] Allergy Dizziness Verified 02/28/19 20:56 PMH/Surg Hx/FS Hx/Imm Hx Endocrine History: Hypothyroidism Cardiovascular History: Hypertension - Surgical History Surgical History: Yes Surgery Procedure, Year, and Place: thyroidectomy , right knee - Family History Known Family History: Positive: Hypertension - Social History Occupation: Employed Full-time Lives: With Family Alcohol Use: None Substance Use Type: None Smoking Status (MU): Never Smoked Tobacco Review of Systems All Other Systems Reviewed And Are Negative: Yes Constitutional: Negative: Fever, Chills Eyes: Negative: Drainage, Eye Redness ENT: Positive: Ear Ache, Sinus Congestion, Sinus Pain/Tenderness. Negative: Sore Throat, Nasal Discharge Respiratory: Positive: Cough. Negative: Shortness Of Breath Cardiovascular: Positive: Negative Gastrointestinal: Positive: Negative Genitourinary: Positive: Negative Musculoskeletal: Positive: Negative Neurological: Positive: Negative Is Patient Immunocompromised?: No Physical Exam - Summary Physical Exam Summary: GENERAL APPEARANCE: Well developed, well nourished, alert and cooperative, and appears to be in no acute distress. EYES: Conjunctiva clear. No drainage. EARS: External auditory canals membranes clear, right TM opaques with good cone of light, left TM dull with air bubbles, hearing grossly intact. NOSE: No nasal discharge. THROAT: Pharynx normal. No tonsilar inflammation, swelling, exudate, or lesions. Uvula midline. NECK: Neck supple, non-tender without lymphadenopathy. CARDIAC: Normal S1 and S2. No S3, S4 or murmurs. Rhythm is regular. There is no peripheral edema, cyanosis or pallor. Extremities are warm and well perfused. Capillary refill is less than 2 seconds. Peripheral pulses intact. LUNGS: Clear to auscultation without rales, rhonchi, wheezing or diminished breath sounds. ABDOMEN: Positive bowel sounds. Soft, nondistended, nontender. No guarding or rebound. No masses or hepatosplenomegally. MUSKULOSKELETAL: ROM intact to all extremities. No joint erythema or tenderness. Normal muscular development. Normal gait. SKIN: Skin normal color, texture and turgor with no lesions or eruptions. Triage Information Reviewed: Yes Vital Signs: Initial Vital Signs Temp 98.5 F 02/28/19 20:56 Pulse 71 02/28/19 20:56 Resp 16 02/28/19 20:56 BP 167/75 02/28/19 20:56 Pulse Ox 99 02/28/19 20:56 Vital Signs Reviewed: Yes Ear Complaint Course/Dx - Course Course Of Treatment: 53-year-old female presents with complaints of left ear fullness for the past week. Over the last 3 days she has started developing pain in that ear as well. Symptoms are associated with "muffled hearing "in the left ear, nasal congestion, sinus pressure, and occasional dry nonproductive cough. States she is currently under the care of Dr. 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 She was last seen by Dr. Urrutia's nurse practitioner in January and she was told that she had some left eustachian tube dysfunction with a serous otitis. Started on mometasone nasal spray. She is supposed to be returning to the office in 2 weeks for a procedure. Denies fever, chills, ear drainage, or sore throat. Afebrile. Hypertensive otherwise vital signs stable. Patient had a dull left TM with some air bubbles without erythema and otherwise unremarkable exam. Patient symptoms and exam are consistent with a left serous otitis likely from the eustachian tube dysfunction. Discussed with the patient that there was no evidence of an infection that would require treatment with an antibiotic at this time. Recommending that she continue using the mometasone nasal spray as well as [id number] analgesics as needed for pain. She is to contact Dr. Urrutia's office tomorrow to notify them of the worsening of her symptoms and to discuss moving up her appointment. Anticipatory guidance and warning symptoms were reviewed with the patient. Verbalizes understanding and agrees with plan of care. - Differential Dx/Diagnosis Differential Diagnosis/HQI/PQRI: Cerumen Impaction, Otitis Externa, Otitis Media , Perforated TM Provider Diagnosis: Serous otitis media Discharge - Sign-Out/Discharge Documenting (check all that apply): Patient Departure All imaging exams completed and their final reports reviewed: No Studies - Discharge Plan Condition: Stable Disposition: HOME Patient Education Materials: Serous Otitis Media (ED) Referrals: Chela Mccabe MD [Primary Care Provider] - Marvel Urrutia MD [Medical Doctor] - 3 Days Additional Instructions: Your exam showed no evidence of an ear infection. You have some fluid behind the ear that is suggestive of a condition called serous otitis which is typically caused by eustachian tube dysfunction. Continue using the mometasone nasal spray 2 sprays each nostril once daily. Take acetaminophen (Tylenol) or into directions as needed for pain. Follow-up with Dr. Urrutia within 3-5 days. I would recommend calling his office first thing tomorrow morning to let him know that your symptoms are worsening. Seek immediate medical attention if you develop a fever greater than 100.5 F, have drainage or blood from the ear, complete loss of hearing, or any worsening of symptoms. - Billing Disposition and Condition Condition: STABLE Disposition: Home
== END 2019-02-28 21:19 | disposition home or self-care (01) ==
LOC: UCCORT 20:47
DX: H65.92 Unspecified nonsuppurative otitis media, left ear (principal); E03.9 Hypothyroidism, unspecified; I10 Essential (primary) hypertension; Z88.5 Allergy status to narcotic agent; Z88.8 Allergy status to other drugs, medicaments and biological substances
CPT/HCPCS: 99211; G0463

== ENCOUNTER 2019-10-17 18:45 | Emergency (ER) | payer BC, OTHER ==
--- OUTSIDE RECORDS SUMMARY | 2019-10-17 18:53 | XMS REPORT | Continuity of Care Document ---
:1965 External Reference #:[id number] Author Name Chela Mccabe MD Address [address] [place] [id number] Care Team Providers Name Role Phone Ivone Driscoll DR - Urology Care Team Information Upholstery Auto Trimmer [phone] Jaime Lester MD Care Team Information Upholstery Auto Trimmer [phone] Zack Arthur - Allergy & Care Team Information Upholstery Auto Trimmer Immunology Problems Active Problems Provider Date Benign essential hypertension Chela Mccabe MD Onset: 10/10/2010 Postoperative hypothyroidism Chela Mccabe MD Onset: 12/15/2009 Anxiety state Chela Mccabe MD Onset: 12/21/2014 Allergic rhinitis Chela Mccabe MD Onset: 07/24/2017 Nontoxic single thyroid nodule Chela Mccabe MD Onset: 05/16/2018 Microscopic hematuria Chela Mccabe MD Onset: 03/05/2019 Social History Type Date Description Comments Sex Unknown Tobacco Use Start: Unknown Never Smoked Cigarettes ETOH Use Rarely consumes alcohol Tobacco Use Start: Unknown Patient has never smoked Smoking Status Reviewed: 09/06/19 Patient has never smoked Allergies, Adverse Reactions, Alerts Active Allergies Reaction Severity Comments Date Percocet Dizzy, Vomiting 12/15/2009 Medications Active Medications SIG Qnty Indications Ordering Date Provider Levothyroxine Sodium 1 by mouth every 90tabs E89.0 Chela Mccabe, 2017 day 88mcg Tablets Propranolol HCL take 1 to 2 120tabs F41.1 Chela Mccabe, 09/13/2011 10mg tablets by mouth Tablets every 6 hours if needed for anxiety symptoms F41.9 Enalapril Maleate take 1 tablet 90tabs I10 Chela Mccabe 09/10/2010 10mg Tablets daily Hydrochlorothiazide take 1 tablet 90tabs I10 Eliot Chela, 09/10/2010 12.5mg Tablets daily Jill Allergy 1 by mouth every Unknown 180mg Tablets day Vitamin C 1 by mouth every Unknown 500mg Chewtabs day Mometasone Furoate 2 sprays each J30.9 Unknown 50mcg/Act nostril every Suspension day Immunizations CPT Code Status Date Vaccine Lot # [id number] Given 07/28/2013 Tdap (Adacel) Ages 7 And Above Only [id number] Refused 09/04/2018 Flu Vaccine NOS 73659 Refused 09/04/2018 Shingrix (Shingles) Zoster Vaccine HZV, Recombinant , Subunit, Adj Q2039 Refused 02/27/2018 Flu Vaccine NOS 55583 Refused 01/19/2016 Afluria Or Fluvirin Flu Vac Intramuscular Vital Signs Date Vital Result Comment 09/06/2019 12:59pm Weight 155.00 lb Heart Rate 80 /min BP Systolic 120 mmHg BP Diastolic 68 mmHg Respiratory Rate 18 /min Height 62 inches 5'2" O2 % BldC Oximetry 98 % Ra BMI (Body Mass Index) 28.3 kg/m2 08/27/2019 2:40pm Weight 158.00 lb with boots Heart Rate 84 /min BP Systolic 122 mmHg BP Diastolic 72 mmHg Respiratory Rate 18 /min Height 62 inches 5'2" O2 % BldC Oximetry 98 % Ra BMI (Body Mass Index) 28.9 kg/m2 Results Test Acquired Date Facility Test Result H/L Range Note Rout Urine W/ Micro -RL 08/27/2019 [facility] Color YELLOW Appearance CLEAR Spec Grav Urine 1.010 (1.003-1.030) PH Urine 5.5 (5.0-7.5) Leuk Esterase TRACE (Neg) Nitrite Urine NEGATIVE (Neg) Protein Urine NEGATIVE (Neg) Glucose Urine NEGATIVE (Neg) Ketone Urine NEGATIVE (Neg) Urobilinogen 0.2 mg/dL (0-1.0) Bilirubin Urine NEGATIVE (Neg) Blood/HGB Urine 1+ Abnormal (Neg) Epithelial Cells NEGATIVE [HPF] (Neg) Hyaline Casts 1.3 [LPF] (0-5) Bacteria 1+ [HPF] Abnormal (Neg) Urine WBC 3.1 [HPF] (0-8) Urine RBC 2.2 [HPF] (0-3) 1 Laboratory test 08/27/2019 [facility] Urine Culture Microbiology res <SEE 2 finding NOTE> 1 Unless otherwise specified, testing performed by [facility] [address] [place] [id number] 2 Microbiology results SOURCE Clean Catch Midstream FINAL RESULT No growth Procedures Date Code Description Status 03/05/2019 [id number] Mammogram Completed 09/04/2018 [id number] Mammogram Completed 02/26/2018 [id number] Mammogram Completed 07/13/2015 [id number] Mammogram Completed 01/19/2015 [id number] Mammogram Completed 01/11/2015 [id number] Mammogram Completed 06/13/2014 [id number] Colonoscopy Completed Medical Devices Description No Information Available Encounters Type Date Location Provider Dx Diagnosis Office Visit 08/27/2019 [facility] Chela Mccabe MD R31.9 Hematuria, unspecified 2:30p R14.0 Abdominal distension (gaseous) Assessments Date Code Description Provider 09/06/2019 I10 Benign essential hypertension Chela Mccabe MD 09/06/2019 E89.0 Postoperative hypothyroidism Chela Mccabe MD 09/06/2019 F41.9 Anxiety disorder, unspecified Chela Mccabe MD 09/06/2019 J30.9 Allergic rhinitis, unspecified Chela Mccabe MD 09/06/2019 E04.1 Nontoxic single thyroid nodule Chela Mccabe MD 09/06/2019 Z68.28 Body mass index (BMI) 28.0-28.9, adult Chela Mccabe MD 08/27/2019 R31.9 Hematuria, unspecified Chela Mccabe MD 08/27/2019 R14.0 Abdominal distension (gaseous) Chela Mccabe MD 08/27/2019 R31.9 Hematuria, unspecified Schedule, Laboratory 08/27/2019 R31.9 Hematuria, unspecified [facility] Plan of Treatment Future Appointment(s):03/14/2020 4:15 pm - Chela Mccabe MD at [facility]09/06/2019 - Chela Mccabe MDI10 Benign essential hypertensionComments:Blood pressure at goal on current medication. However, optimum control is blood pressure of less than 120/80. Do not add salt to your food. Encourage regular exercise and healthy diet to improve blood pressure. We repeated blood pressure in the office today and it was around is 120/68.Follow up:After 03/05/19 for FYE with no Pap smear. 6-months follow up with non-fasting labs prior.E89.0 Postoperative hypothyroidismNew Labs:TSH-fcmg, Scheduled: 03/07/20Comments:TSH is in the therapeutic range. Continue current medication.TSH is in the therapeutic range. Continue current medication.F41.9 Anxiety disorder, unspecifiedComments:She is not taking any medication and doing well.J30.9 Allergic rhinitis, unspecifiedComments:She is not taking any medication and doing well.E04.1 Nontoxic single thyroid noduleComments:She follows up with Dr. Urrutia for this.She follows up with Dr. Urrutia for this.Z68.28 Body mass index ( BMI) 28.0-28.9, adultComments:The BMI is the ratio of height to weight. Weight loss is desirable. Your goal BMI is between 18.9 and 25. Your are overweight. Work on improving your diet to help with weight loss. Functional Status Description No Information Available Mental Status Description No Information Available Referrals Description No Information Available
--- OUTSIDE RECORDS SUMMARY | 2019-10-17 18:53 | XMS REPORT | Continuity of Care Document ---
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 Onset: 07/14/2018 Social History Type Date Description Comments Sex Unknown ETOH Use Denies alcohol use Tobacco Use Start: Unknown Patient has never smoked Recreational Drug Use Never Used Drugs Smoking Status Reviewed: 08/26/19 Patient has never smoked Allergies, Adverse Reactions, [...] Unknown 10mg Tablets tablet by mouth prn Immunizations Description No Information Available Vital Signs Date Vital Result Comment 02/01/2019 2:53pm BP Systolic 132 mmHg BP Diastolic 87 mmHg Body Temperature 98.9 F Heart Rate 75 /min Respiratory Rate 20 /min Weight 155.50 lb Pain Level 0 O2 % BldC Oximetry 96 % Ra 07/14/2018 10:06am BP Systolic 127 mmHg BP Diastolic 86 mmHg Body Temperature 97.6 F Heart Rate 78 /min Respiratory Rate 18 /min Weight 148.00 lb Pain Level 0 O2 % BldC Oximetry 99 % Results Description No Information Available Procedures Description No Information Available Medical Devices Description No Information Available Encounters Description No Information Available Assessments Date Code Description Provider 08/26/2019 H40.033 Anatomical narrow angle, bilateral Jaime Curtis MD 08/26/2019 H04.123 Dry eye syndrome of bilateral lacrimal glands Jaime Curtis MD 08/26/2019 H52.4 Presbyopia Jaime Curtis MD Plan of Treatment Future Appointment(s):08/28/2020 3:00 pm - Jaime [facility] MD at [email or web address]/ 04/2020 4:00 pm - Ivone Driscoll M.D. at [facility]/05/2019 - Jaime Curtis MDH40.033 Anatomical narrow angle, bilateralComments:- non-occludable on gonioscopy- discussed glaucoma: primary open and anatomic narrowing; discussed vision loss, treatments- no indication for laser peripheral iridotomy at this timeFollow up:1 year exam or as zdwjuaF60.123 Dry eye syndrome of bilateral lacrimal glandsComments:- warm compresses- artificial tears both eyes: can use 4 times daily- consider ointment at night- can consider punctal occlusion or nrmtbtewN35.4 PresbyopiaComments:- can use over the counter reading glasses + 1.50 or +1.75- provided rx for glasses in case would like Functional Status Description No Information Available Mental Status Description No Information Available Referrals Description No Information Available
--- OUTSIDE RECORDS SUMMARY | 2019-10-17 18:53 | XMS REPORT | Continuity of Care Document ---
:1965 External Reference #:[id number] Author Name Chela Valdes MD Address [address] [place] [id number] Care Team Providers Name Role Phone Ivone Driscoll DR - Urology Care Team Information Journalism Instructor [phone] Jaime Lester MD Care Team Information Journalism Instructor [phone] Zack Arthur - Allergy & Care Team Information Journalism Instructor [phone] Immunology Problems Active Problems Provider Date Benign essential hypertension Chela Valdes MD Onset: 10/10/2010 Postoperative hypothyroidism Chela Valdes MD Onset: 12/15/2009 Anxiety state Chela Valdes MD Onset: 12/21/2014 Allergic rhinitis Chela Valdes MD Onset: 07/24/2017 Nontoxic single thyroid nodule Chela Valdes MD Onset: 05/16/2018 Microscopic hematuria Chela Valdes MD Onset: 03/05/2019 Social History Type Date Description Comments Sex Unknown Tobacco Use Start: Unknown Never Smoked Cigarettes ETOH Use Rarely consumes alcohol Tobacco Use Start: Unknown Patient has never smoked Smoking Status Reviewed: 03/05/19 Patient has never smoked Allergies, Adverse Reactions, Alerts Active Allergies Reaction Severity Comments Date Percocet Dizzy, Vomiting 12/15/2009 Medications Active Medications SIG Qnty Indications Ordering Date Provider Levothyroxine Sodium 1 by mouth 90tabs E89.0 Chela Valdes, 05/01/2018 every day 88mcg Tablets Fluticasone Propionate 2 sprays to 15.800ml H68.012 Chela Valdes, 2017 each nostril 50mcg/Act Suspension J30.9 Propranolol HCL take 1 to 2 tablets 120tabs F41.1 Chela Valdes MD 09/13 10mg by mouth every 6 Tablets hours if needed for anxiety Symptoms F41.9 Enalapril Maleate take 1 tablet 90tabs I10 Chela Valdes, 09/10/2010 10mg Tablets daily Hydrochlorothiazide take 1 tablet 90tabs I10 Chela Valdes, 09/10/2010 12.5mg Tablets daily Jill Allergy 1 by mouth every Unknown 180mg Tablets day Vitamin C 1 by mouth every Unknown 500mg Chewtabs day Mometasone Furoate 2 sprays each J30.9 Unknown 50mcg/Act nostril every Suspension day Immunizations CPT Code Status Date Vaccine Lot # [id number] Given 07/28/2013 Tdap (Adacel) Ages 7 And Above Only [id number] Refused 09/04/2018 Flu Vaccine NOS [id number] Refused 09/04/2018 Shingrix (Shingles) Zoster Vaccine HZV, Recombinant , Subunit, Adj [id number] Refused 02/27/2018 Flu Vaccine NOS [id number] Refused 01/19/2016 Afluria Or Fluvirin Flu Vac Intramuscular Vital Signs Date Vital Result Comment 08/27/2019 2:40pm Weight 158.00 lb with boots Heart Rate 84 /min BP Systolic 122 mmHg BP Diastolic 72 mmHg Respiratory Rate 18 /min Height 62 inches 5'2" O2 % BldC Oximetry 98 % Ra BMI (Body Mass Index) 28.9 kg/m2 03/05/2019 2:06pm Weight 153.00 lb Heart Rate 78 /min BP Systolic 124 mmHg BP Diastolic 78 mmHg Respiratory Rate 18 /min Height 62 inches 5'2" O2 % BldC Oximetry 98 % Ra BMI (Body Mass Index) 28.0 kg/m2 Results Test Acquired Date Facility Test Result H/L Range Note Laboratory test 08/27/2019 [facility] Urine <pending> finding Culture Laboratory test 03/05/2019 [facility] 1 finding [phone] [facility] <SEE NOTE> Laboratory test 03/05/2019 [facility] Pap Smear SEE NOTE 2 finding Thin Prep Rout Urine W/ 03/05/2019 [facility] Color YELLOW Micro -RL Appearance CLEAR Spec Grav Urine 1.018 (1.003-1.030) PH Urine 6.0 (5.0-7.5) Leuk Esterase NEGATIVE (Neg) Nitrite Urine NEGATIVE (Neg) Protein Urine NEGATIVE (Neg) Glucose Urine NEGATIVE (Neg) Ketone Urine NEGATIVE (Neg) Urobilinogen 0.2 mg/dL (0-1.0) Bilirubin Urine NEGATIVE (Neg) Blood/HGB Urine 2+ Abnormal (Neg) Epithelial Cells NEGATIVE [HPF] (Neg) Hyaline Casts 1.9 [LPF] (0-5) Bacteria 1+ [HPF] Abnormal (Neg) Urine WBC 2.2 [HPF] (0-8) Urine RBC 14.7 [HPF] High (0-3) 3 [address] [place] [address] Amplified Molecular High Risk HPV Test Patient Name:KHADIJAH MCCLENDON Patient :1965 Ordering Physician:CHELA VALDES MD Accession Number [id number] Specimen(s) Received A: High Risk HPV Thin Prep Cervical / Endocervical Pap Smear - One Vial Other Case Numbers: [id number] Diagnosis RISK GROUPS RESULTS High Risk NEGATIVE Tested for HPV Types (16, 18, 31, 33, 35, 39, 45, 51, 52, 56, 58, 59, 66, 68) Reported: 03/10/2019 08:09 Electronically Signed Out By Surekha Tang [email or web address] Raisa Vancelilia 2 [facility], [facility]. [address] [place] [address] CYTOLOGY REPORT Source of Specimen(s): Thin Prep Cervical / Endocervical Pap Smear - One Vial Date of Last Menstrual Period: 11/05/18 Other Clinical Conditions: Last Pap Smear: 2017 normal HPV ASSAY REQUESTED Specimen Adequacy SATISFACTORY FOR EVALUATION PRESENCE OF ENDOCERVICAL/TRANSFORMATION ZONE COMPONENT General Categorization NEGATIVE FOR INTRAEPITHELIAL LESION OR MALIGNANCY Interpretation NEGATIVE FOR INTRAEPITHELIAL LESION OR MALIGNANCY Comment HPV testing will be performed and a separate report will be issued. Reported: 03/09/2019 13:41 Electronically Signed Out By Debi Mack CT(ASCP) giancarlo Matias CT(ASCP) GIANCARLO ICD9 Code: Z01.419 CPT code: A: OT623L QC Reviewed: Y Unless otherwise specified, testing performed by [facility] [address] [place] [address] 3 Unless otherwise specified, testing performed by [facility] [address] [place] [address] Procedures Date Code Description Status 03/05/2019 [id number] Mammogram Completed 09/04/2018 [id number] Mammogram Completed 02/26/2018 [id number] Mammogram Completed 07/13/2015 [id number] Mammogram Completed 01/19/2015 [id number] Mammogram Completed 01/11/2015 [id number] Mammogram Completed 06/13/2014 [id number] Colonoscopy Completed Medical Devices Description No Information Available Encounters Type Date Location Provider Dx Diagnosis Office Visit 03/05/2019 [facility] Chela Valdes MD Z01.419 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 (general) (routine) w/o abn findings Z13.31 Encounter for screening for depression I10 Essential (primary) hypertension E89.0 Postprocedural hypothyroidism F41.9 Anxiety disorder, unspecified J30.9 Allergic rhinitis, unspecified E04.1 Nontoxic single thyroid nodule Z68.28 Body mass index (BMI) 28.0-28.9, adult Assessments Date Code Description Provider 08/27/2019 R31.9 Hematuria, unspecified Chela Valdes MD 08/27/2019 R14.0 Abdominal distension (gaseous) Chela Valdes MD 08/27/2019 R31.9 Hematuria, unspecified Schedule, Laboratory 03/05/2019 Z01.419 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 (general) (routine) w/o Chela Valdes MD abn findings 03/05/2019 Z13.31 Encounter for screening for depression Chela Valdes MD 03/05/2019 I10 Benign essential hypertension Chela Valdes MD 03/05/2019 E89.0 Postoperative hypothyroidism Chela Valdes MD 03/05/2019 F41.9 Anxiety disorder, unspecified Chela Valdes MD 03/05/2019 J30.9 Allergic rhinitis, unspecified Chela Valdes MD 03/05/2019 E04.1 Nontoxic single thyroid nodule Chela Valdes MD 03/05/2019 Z68.28 Body mass index (BMI) 28.0-28.9, adult Chela Valdes MD Plan of Treatment Future Appointment(s):09/06/2019 1:00 pm - Chela Valdes MD at [facility]08/27/2019 - Chela Valdes, MDR31.9 Hematuria, unspecifiedComments:We will send her urine for culture and microscopic exam.Follow up:Follow up as scheduled.R14.0 Abdominal distension (gaseous)Comments:She was advised to try [id number] products of gas-X for relief of her symptoms. We will checklabs on this patient to evaluate for liver function and test for celiac disease. Functional Status Description No Information Available Mental Status Description No Information Available Referrals Description No Information Available
[2019-10-17] MEDS ORDERED: Fluorescein Sodium TOPICAL* 1 MG TEST STRIP OPHTHALMIC ONE (19:00)
[2019-10-17] MEDS ORDERED: Tetracaine 0.5% OPTH.SOL 4 ML* 1 DROP BTL BOTH EYES ONE (19:00)
[2019-10-17 19:01] VITALS: BP 157/86
--- NOTE | 2019-10-17 19:15 | UC ---
Eye Complaint HPI - HPI Summary HPI Summary: tonight she injured Left eye injury with branch from an artificial [place] tree . it scratched pt.'s eye. does not wear contacts. tearing up a lot but denies pain. - History of Current Complaint Chief Complaint: UCEye Stated Complaint: EYE COMPLAINT Time Seen by Provider: 10/17/19 18:59 Hx Obtained From: Patient Hx Last Menstrual Period: 10/04/19 Onset/Duration: Sudden Onset Pain Intensity: 3 Pain Scale Used: 0-10 Numeric - describes more irritation Character: Foreign Body Sensation Aggravating Factor(s): Blinking Alleviating Factor(s): Nothing - Allergies/Home Medications Allergies/Adverse Reactions: Allergies Allergy/AdvReac Type Severity Reaction Status Date / Time oxycodone [From Percocet] Allergy Dizziness Verified 02/28/19 20:56 Home Medications: Home Medications Ibuprofen TAB* [Advil TAB*] 200 mg PO Q6H PRN 10/17/19 [History Confirmed ] Loratadine [Claritin 10 MG CAP] 10 mg PO ONCE PRN 10/17/19 [History Confirmed ] PMH/Surg Hx/FS Hx/Imm Hx Previously Healthy: Yes Endocrine History: Thyroid Disease Cardiovascular History: Hypertension - Surgical History Surgical History: Yes Surgery Procedure, Year, and Place: thyroidectomy , right knee. tube placed left ear - Family History Known Family History: Positive: Hypertension - Social History Alcohol Use: None Substance Use Type: None Smoking Status (MU): Never Smoked Tobacco Review of Systems All Other Systems Reviewed And Are Negative: Yes Eyes: Positive: Blurred Vision - L eye due to tearing, Drainage - clear, tearing up, Eye Redness - Left, Other - fb sensation. Negative: Diplopia, Photophobia Physical Exam Triage Information Reviewed: Yes Appearance: Well-Appearing Vital Signs: Initial Vital Signs Temp 97.5 F 10/17/19 18:57 Pulse 92 10/17/19 18:57 Resp 17 10/17/19 18:57 BP 157/86 10/17/19 18:57 Pulse Ox 98 10/17/19 18:57 Vital Signs Reviewed: Yes Eyes: Positive: Conjunctiva Clear - L eye, Discharge - clear watery tears in L eye, Other: - w/ pineda light able to see pooling of dye into abrasions in L cornea Eye Complaint Course/Dx - Course Course Of Treatment: Corneal abrasion in L eye. She should see opthalm in 2-3 days but will rx opthal/topical antibx for now. No pain per pt. bp elevated but she will talk to pcp about this. - Differential Dx/Diagnosis Differential Diagnosis/HQI/PQRI: Corneal Abrasion, Other Provider Diagnosis: Corneal abrasion Discharge ED - Sign-Out/Discharge Documenting (check all that apply): Patient Departure All imaging exams completed and their final reports reviewed: No Studies - Discharge Plan Condition: Good Disposition: HOME Prescriptions: Erythromycin OPTH OINT* [Erythromycin 0.5% OPTH OINT*] 1 applic LEFT EYE TID 7 Days #1 ophth.oint Patient Education Materials: Corneal Abrasion (ED) Referrals: James Navarro MD [Medical Doctor] - Additional Instructions: Please make follow up appt with eye doctor. Pleae speak to your pcp re: your blood pressure. - Billing Disposition and Condition Condition: GOOD Disposition: Home - Attestation Statements Provider Attestation: I was available for consult. This patient was seen by the [facility]. The patient was not presented to , seen by or examined by -Verna Carrillo MD
== END 2019-10-17 19:26 | disposition home or self-care (01) ==
LOC: UCCORT 18:45
DX: S05.02XA Injury of conjunctiva and corneal abrasion without foreign body, left eye, initial encounter (principal); I10 Essential (primary) hypertension; Z88.5 Allergy status to narcotic agent; W22.8XXA Striking against or struck by other objects, initial encounter; Y92.9 Unspecified place or not applicable
CPT/HCPCS: 99212; A9270-GY; G0463